=== PATIENT | male | born 1950 | race Caucasian/White ===

== ENCOUNTER → 2019-07-02 12:50 | Outpatient (CLI) | payer MEDICARE, SELFPAY ==
--- NOTE | ~2019-07-02 | XR_ITS ---
EXAMINATION: XR chest 2V 07/02/2019 13:06 INDICATION: Asbestos exposure. PROCEDURE: 2 view chest COMPARISON: 10/01/2013 FINDINGS: The lungs are clear. The cardiomediastinal silhouette is within normal limits. There are no pleural effusions. There is no pneumothorax suspected. IMPRESSION: 1: NO ACUTE CARDIOPULMONARY DISEASE. Reviewed, dictated and finalized at location B. THCARE RECRUITER
== END ==
PROVIDERS: PCP Internal Medicine; Visit Provider Internal Medicine
DX: Z77.090 Contact with and (suspected) exposure to asbestos (principal)
CPT/HCPCS: 71046

== ENCOUNTER 2021-04-27 01:10 | Day surgery (SDC) | payer MEDICARE, SELFPAY ==
[2021-04-09 09:01] VITALS: BMI 27.0
--- NOTE | 2021-04-27 09:17 | WPDANESEPPF ---
Anes - Initial Pre Proc Eval Procedure: Operation Date: 04/27/21 10:30 Proposed Procedures p Screening Colonoscopy - Milo Viveros MD Date/Time: 04/27/21 09:17 Surgeon: Milo Viveros MD Pre Op Diagnosis: hx of colon polyps Patient Data Age: 70 Gender: M Height: 1.88 m Weight: 95.4 kg Allergies Allergy/AdvReac Type Severity Reaction Status Date / Time No Known Allergies Allergy Verified 04/27/21 09:17 Home Medications Medication Instructions Recorded Confirmed Type aspirin 81 mg tablet,delayed 81 mg PO DAILY 06/05/19 04/09/21 History release hydrochlorothiazide 12.5 mg tablet 12.5 mg PO DAILY #90 tablet 04/16/21 04/27/21 Rx lisinopril 40 mg tablet 40 mg PO DAILY #90 tablet 04/16/21 04/27/21 Rx simvastatin 10 mg tablet 10 mg PO DAILY #90 tablet 04/16/21 04/27/21 Rx Patient hx anesthesia problems: none Family hx anesthesia problems: none Results Review: All pre-operative results and documents have been reviewed as part of the pre-operative evaluation. [facility] Past Medical History Medical History (Updated 04/27/21 @ 09:23 by Isaac Denson MD) Essential (primary) hypertension Hypercalcemia Prostate cancer Pure hypercholesterolemia Family History Family History Mother Cerebrovascular accident, Onset Age: 73 Father Patient's father is Other Family history of lung cancer Social History Social History Smoking status: Never smoker Second hand tobacco smoke exposure: No Alcohol intake: current Drinks per week: 8 Alcohol use details: 2 beers every other day Substance use: never Substance use type: does not use Living arrangements: with family Spiritual care concerns: No Anes - Eval Final PreProcedure Day of Procedure 04/27/21 09:17 Patient weight: normal Heart: regular rate and rhythm Lungs: clear to auscultation and normal air movement Airway: Mallampati scale class II Neurological: alert and oriented Last oral intake: >/= 8 hours ASA classification: III Emergent: no Anesthetic plan: proceed Anesthesia type and monitoring: general GIVS Results Review: All pre-operative results and documents have been reviewed as part of the pre-operative evaluation. Informed Consent: The patient's anesthetic plan and its attendant risks and benefits were discussed with the patient/family/POA. Questions were solicited and answers provided to the satisfaction of the patient/family/POA.
[2021-04-27 09:18] VITALS: BP 114/73; PULSE 107; RESP 18; TEMP 36.7; O2SAT 100
[2021-04-27] MEDS: LACTATED RINGERS 1,000 ML 150 ML IV CONT (09:37)
--- NOTE | 2021-04-27 10:01 | WPDGICN ---
Assessment and Plan Assessment and plan (1) History of colon polyps: Code(s): Z86.010 - Personal history of colonic polyps Status: Acute Assessment and Plan: Patient has a history of colon polyps removed at last colonoscopy 2015. Plan is for surveillance follow-up colonoscopy at this time. Further recommendations will be given after endoscopy. GI Consult Note Consult date/time: 04/27/21 10:01 HPI: Raúl Wu is a 70 year old male Presents for colonoscopy. Patient has a prior history of colon polyps in 2016. He reports his current weight appetite bowel movements are normal. Patient denies abdominal pain. He has had no bleeding. Family history is noncontributory. He presents today for neoplasia screening. Review of Systems Review of Systems: All systems reviewed & are unremarkable except as noted in HPI and below PMFSH Past Medical History Medical History (Updated 04/27/21 @ 10:02 by Milo Viveros MD) Essential (primary) hypertension Hypercalcemia Prostate cancer Pure hypercholesterolemia Family History Family History Mother Cerebrovascular accident, Onset Age: 73 Father Patient's father is Other Family history of lung cancer Social History Social History Smoking status: Never smoker Second hand tobacco smoke exposure: No Alcohol intake: current Drinks per week: 8 Alcohol use details: 2 beers every other day Substance use: never Substance use type: does not use Living arrangements: with family Spiritual care concerns: No Meds Home Medications and Allergies Home Medications Medication Instructions Recorded Confirmed Type aspirin 81 mg tablet,delayed 81 mg PO DAILY 06/05/19 04/09/21 History release hydrochlorothiazide 12.5 mg tablet 12.5 mg PO DAILY #90 tablet 04/16/21 04/27/21 Rx lisinopril 40 mg tablet 40 mg PO DAILY #90 tablet 04/16/21 04/27/21 Rx simvastatin 10 mg tablet 10 mg PO DAILY #90 tablet 04/16/21 04/27/21 Rx Allergies Allergy/AdvReac Type Severity Reaction Status Date / Time No Known Allergies Allergy Verified 04/27/21 09:17 Vital Signs Vital Signs - 24 hr 04/27/21 09:18 Temperature 98.1 F Pulse Rate 107 H Respiratory Rate 18 Blood Pressure 114/73 Pulse Oximetry 100 Exam Narrative: Physical exam reveals patient be alert. Vital signs stable. HEENT exam is unremarkable. Patient is anicteric. Lungs are clear to auscultation and percussion. Heart is without murmur or extra sounds. Abdomen bowel sounds are present soft nontender with no organomegaly. Digital external rectal exam is normal.
[2021-04-27 10:28] VITALS: BP 72/42; PULSE 88; RESP 19; O2SAT 99
[2021-04-27 10:34] VITALS: BP 101/68; PULSE 82; RESP 14; O2SAT 99
[2021-04-27 10:38] VITALS: BP 96/63; PULSE 79; RESP 17; O2SAT 100
[2021-04-27 10:48] VITALS: BP 116/78; PULSE 76; RESP 21; O2SAT 97
[2021-04-27 10:55] VITALS: BP 123/79
== END 2021-04-27 11:05 | disposition home or self-care (01) ==
PROVIDERS: PCP Internal Medicine; Visit Provider Internal Medicine Gastroenterology
PROC: 0DJD8ZZ Inspection of Lower Intestinal Tract, Via Natural or Artificial Opening Endoscopic (ICD-10-PCS; CPT 45378; principal; 2021-04-27 10:30)
DX: Z12.11 Encounter for screening for malignant neoplasm of colon (principal); K64.8 Other hemorrhoids; K57.30 Diverticulosis of large intestine without perforation or abscess without bleeding; Z86.010 Personal history of colon polyps; I10 Essential (primary) hypertension; E78.00 Pure hypercholesterolemia, unspecified; E83.52 Hypercalcemia; Z85.46 Personal history of malignant neoplasm of prostate; Z79.82 Long term (current) use of aspirin
CPT/HCPCS: G0105; J2704; J7120

== ENCOUNTER 2022-11-03 13:23 | Outpatient (CLI) | payer MEDICARE, SELFPAY ==
--- NOTE | ~2022-11-03 | CT_ITS ---
EXAMINATION: CT shoulder RT wo con DATE: 11/03/2022 13:56 INDICATION: Right shoulder osteoarthritis for preoperative planning. TECHNIQUE: High resolution computed tomography (CT) of the right shoulder was performed without intra venous contrast. Additional sagittal and coronal reconstructions were performed. Automated exposure c ontrol and iterative reconstruction technique were employed. The dose-length product was 546.31 mGy-c m. COMPARISON: Right shoulder radiographs dated 07/18/2022 FINDINGS: Severe osteoarthritis at the right glenohumeral joint with extensive cartilage loss resulting in esse ntially [id number] joint space narrowing with remodeling and subarticular cystic change along the s uperomedial aspect of the humeral head and with remodeling of the glenoid particularly posteriorly re sulting in approximately 10 degrees acquired retroversion. Multiple loose osteochondral bodies are se en throughout the recesses of the joint space. There is mild fatty atrophy of the infraspinatus muscl e belly. Moderate right acromioclavicular osteoarthritis. Small calcified nodules in the right upper lobe consistent with old granulomatous disease. IMPRESSION: 1. Severe right glenohumeral osteoarthritis with approximately 10 degrees acquired retroversion of th e glenoid. Reviewed, dictated and finalized at location A. IMPRESSION: 1. Severe right glenohumeral osteoarthritis with approximately 10 degrees acqui red retroversion of the glenoid.
== END 2022-11-03 13:24 | disposition home or self-care (01) ==
PROVIDERS: PCP Internal Medicine; Visit Provider Orthopaedic Surgery
DX: M19.011 Primary osteoarthritis, right shoulder (principal)
CPT/HCPCS: 73200

== ENCOUNTER 2022-11-10 10:38 | Emergency (ER) | payer MEDICARE, SELFPAY ==
--- NOTE | ~2022-11-10 | CT_ITS ---
Non-contrast Head CT History: Status post fall Technique: Axial non-contrast imaging of the brain was performed. Dose reduction technique was used on this scan by utilizing automated exposure control and iterative reconstruction technique. The dose -length product (DLP) was 681.00 mGy-cm. Findings: There is no evidence of intracranial hemorrhage, mass lesion, or acute infarct. Brain par enchyma appears normal. The ventricles and subarachnoid spaces are normal in size. The calvarium ap pears normal. The visualized paranasal sinuses and mastoid air cells are clear. Impression: No significant abnormality seen. Reviewed, dictated and finalized at location . Impression: No significant abnormality seen.
--- NOTE | ~2022-11-10 | CT_ITS ---
CT Facial Bones Clinical Indication: Status post fall Technique: Contiguous axial scans were obtained through the facial bones followed by coronal and sagi ttal reconstructions. Dose reduction technique was used on this scan by utilizing automated exposure control and iterative reconstruction technique. The dose-length product (DLP) was 303.17 mGy-cm. Findings: No fractures are identified. The visualized paranasal sinuses are clear. Intraorbital soft tissues appear normal. Impression: No fracture identified. Reviewed, dictated and finalized at location . Impression: No fracture identified.
[2022-11-10 10:48] VITALS: BP 134/84; PULSE 90; RESP 18; TEMP 36.6; O2SAT 98
--- NOTE | 2022-11-10 11:10 | ED.WOUNDLAC ---
HPI - Wound/Laceration General Chief Complaint: Wound/Laceration Stated Complaint: fall-facial lacertion Time Seen by Provider: 11/10/22 10:54 History of Present Illness HPI narrative: 71-year-old male reports for evaluation of a laceration to his right eyebrow after a mechanical fall. Patient states he was working on the house, tripped on a board on the ground and fell hitting his head on a 2 x 4. Denies LOC. Reports a laceration above his right eyebrow, bleeding controlled. Last tetanus shot unknown. Denies focal numbness or weakness, vision changes, pain with EOMs, chest pain or shortness of breath, nausea or vomiting. Related Data Home Medications Medication Instructions Recorded Confirmed aspirin 81 mg tablet,delayed 81 mg PO DAILY 06/05/19 10/26/22 release (Adult Low Dose Aspirin) vit C 250 mg-vit E 90 mg-zinc 40 1 tablet PO BID 07/18/22 10/26/22 mg-copper 1 [id number] capsule (PreserVision AREDS-2) Allergies Allergy/AdvReac Type Severity Reaction Status Date / Time No Known Allergies Allergy Verified 11/10/22 10:38 Review of Systems Review of Systems: CONSTITUTIONAL: Denies fever, chills EYES: Denies visual changes, redness, or discharge. ENT: Denies rhinorrhea, congestion, sore throat, or otalgia. CARDIOVASCULAR: Denies chest pain, palpitations, or edema. RESPIRATORY: Denies cough or dyspnea. GASTROINTESTINAL: Denies abdominal pain, nausea, vomiting, or diarrhea. GENITOURINARY: Denies dysuria or hematuria. SKIN: See HPI MUSCULOSKELETAL: Denies back pain, joint pain, or myalgia. NEUROLOGIC: Denies headache, numbness, dizziness, or weakness. PSYCHIATRIC: Denies anxiety or depression. [facility] Past Medical History Medical History Essential (primary) hypertension History of torn meniscus of right knee (~1974) Hypercalcemia Prostate cancer Pure hypercholesterolemia Shoulder separation (~1972) Left shoulder Family History Family History Mother Cerebrovascular accident, Onset Age: 73 Father Patient's father is Other Family history of lung cancer Social History Social History Smoking status: Never smoker Second hand tobacco smoke exposure: No Alcohol intake: current Drinks per week: 8 Alcohol use details: 2 beers every other day Substance use: never Substance use type: does not use Lack of Transportation: No Lack of Food: Never True Current Housing: I Have Housing Concerned About Future Housing: No Difficulty Paying Gas/Electric Bills: No Difficulty Paying for Meds: No Currently Unemployed: No Education: High School Diploma/GED Difficulty w/ Childcare or Family Care: No Living arrangements: with family Spiritual care concerns: No Exam Narrative: GENERAL: Well-appearing, in no acute distress. HEAD: Normocephalic. EYES: PERRLA, EOMI ENT: Nares clear. Mucous membranes moist. Oropharynx without tonsillar hypertrophy exudate or other lesions. NECK: Supple. CHEST: No respiratory distress. Clear to auscultation, no adventitious breath sounds. HEART: Regular rate and rhythm. No murmur heard. Normal peripheral pulses. ABDOMEN: Soft, nontender, normal active bowel sounds. EXTREMITIES: Normal range of motion. No edema. SKIN: 2 cm curvilinear laceration above the right eyebrow. Bleeding controlled. 2 cm area of erythema to the right zygomatic bone without tenderness. NEURO: No focal deficits. Alert and oriented x3. Cranial nerves II through XII intact. Strength 5/5 in BUE and BLE. Sensation intact throughout. PSYCH: Normal mood and affect. Course Course Emergency Course: Offered medications for pain, he declined. Vital Signs Vital signs: Vital Signs Temperature 97.9 F 11/10/22 10:48 Pulse Rate 90 11/10/22 10:48 Respiratory Ra
[2022-11-10] MEDS: TETANUS,DIPHTHERIA,AC PERTUSSIS ADULT (0.5 ML) BOOSTRIX IM (12:05)
== END 2022-11-10 12:19 | disposition home or self-care (01) ==
PROVIDERS: Emergency Provider Physician Assistant; PCP Internal Medicine
DX: S01.111A Laceration without foreign body of right eyelid and periocular area, initial encounter (principal); Z23 Encounter for immunization; I10 Essential (primary) hypertension; E78.00 Pure hypercholesterolemia, unspecified; Z85.46 Personal history of malignant neoplasm of prostate; Z79.82 Long term (current) use of aspirin; W18.09XA Striking against other object with subsequent fall, initial encounter
CPT/HCPCS: 12011; 70450; 70486; 90471; 90715; 99284

== ENCOUNTER 2023-05-02 08:34 | Outpatient (CLI) | payer MEDICARE, SELFPAY ==
--- NOTE | 2023-05-02 | ECG_ITS ---
Measurements Intervals [place] Rate: 70 P: 51 NC: 191 QRS: 48 QRSD: 92 T: 58 QT: 382 QTc: 414 Interpretive Statements SINUS RHYTHM NORMAL ECG NO PREVIOUS ECG AVAILABLE FOR COMPARISON Electronically Signed On 05-02-2023 9:44:39 GREETING CARD EDITOR by Ellis Dallas D.O.
== END 2023-05-02 08:35 | disposition home or self-care (01) ==
PROVIDERS: PCP Internal Medicine
DX: R03.0 Elevated blood-pressure reading, without diagnosis of hypertension (principal)
CPT/HCPCS: 93005

== ENCOUNTER 2023-07-26 09:57 | Outpatient (CLI) | payer MEDICARE, SELFPAY ==
--- NOTE | ~2023-07-26 | XR_ITS ---
Right Knee Technique: AP, lateral, and sunrise views were obtained. Clinical History: Pain Findings: No fracture or dislocation is seen. There is severe degenerative change of the medial mark rtment, medial joint space narrowing and medial joint line osteophyte formation. There is moderate sp urring of the patella and lateral joint line.. Soft tissues are unremarkable. No joint effusion is se en. Impression: Tricompartmental degenerative change, as detailed above, worst in the medial compartment. Reviewed, dictated and finalized at location M. ESSIONAL HOUSING CONSULTANT Impression: Tricompartmental degenerative change, as detailed above, worst in the medial co mpartment.
== END 2023-07-26 09:58 | disposition home or self-care (01) ==
PROVIDERS: PCP Internal Medicine; Visit Provider Orthopaedic Surgery
DX: M17.11 Unilateral primary osteoarthritis, right knee (principal)
CPT/HCPCS: 73562

== ENCOUNTER 2023-08-03 12:20 | Outpatient (CLI) | payer MEDICARE, SELFPAY ==
--- NOTE | ~2023-08-03 | CT_ITS ---
. EXAMINATION: CT LE RT wo con DATE: 08/03/2023 13:33 INDICATION: Right knee primary osteoarthritis. Preoperative planning. TECHNIQUE: Computed tomography (CT) of the right lower limb was performed without intravenous contras t. Automated exposure control and iterative reconstruction technique were employed. The dose-length p roduct was 1811.60 mGy-cm. COMPARISON: Right knee radiographs 07/26/2023 FINDINGS: There is moderate right hip osteoarthritis. There is varus angulation at the knee. There is severe osteoarthritis of the medial and patellofemoral compartments and moderate osteoarthritis of l ateral compartment. There is a small knee joint effusion. Partially visualized is an arthroplasty of first metatarsophalangeal joint. There is severe ankle joint osteoarthritis. IMPRESSION: 1. Severe right knee osteoarthritis. 2. Small right knee joint effusion. 3. Moderate right hip osteoarthritis. 4. Severe ankle osteoarthritis. Reviewed, dictated and finalized at location A. ER MECHANIC
[2023-08-03 13:14] LABS: Albumin Level 4.5 g/dL (3.5-5.1); Estimated Glomerular Filt Rate > 60; Glucose 95 mg/dL (65-110)
[2023-08-03 13:21] LABS: Hematocrit 43.4 % (42.0-52.0); Hemoglobin 14.2 g/dL (14.0-18.0)
== END 2023-08-03 12:21 | disposition home or self-care (01) ==
PROVIDERS: PCP Internal Medicine; Visit Provider Orthopaedic Surgery
DX: Z01.818 Encounter for other preprocedural examination (principal); M17.11 Unilateral primary osteoarthritis, right knee; M16.11 Unilateral primary osteoarthritis, right hip; M19.071 Primary osteoarthritis, right ankle and foot; M25.461 Effusion, right knee; E78.5 Hyperlipidemia, unspecified; I10 Essential (primary) hypertension
CPT/HCPCS: 36415; 73700; 82040; 82565; 82947; 85014; 85018

== ENCOUNTER 2023-09-25 09:15 | Emergency (ER) | payer MEDICARE, SELFPAY ==
[2023-09-25 09:22] VITALS: BP 146/66; PULSE 78; RESP 16; TEMP 36.5; O2SAT 100
--- NOTE | 2023-09-25 09:40 | ED.EAR ---
HPI - Ear Problem General Chief complaint: Ear Stated complaint: Ear Pain Time Seen by Provider: 09/25/23 09:35 Source: patient, RN notes reviewed and old records reviewed Mode of arrival: ambulatory Limitations: no limitations History of Present Illness HPI Narrative: 72-year-old male to [facility] for complaint of bilateral impacted cerumen, worse on left. Patient endorses that he used ear plugs yesterday while mowing and had discomfort in left ear. Patient reports history of impacted cerumen and history of perforated TM on right. Patient states he was referred to ENT but did not want to wait 2 months for initial appointment. Patient denies pain, nausea, dizziness, headache. No signs of distress in triage. Related Data Home Medications Medication Instructions Recorded Confirmed aspirin 81 mg tablet,delayed 81 mg PO DAILY 06/05/19 09/25/23 release (Adult Low Dose Aspirin) Allergies Allergy/AdvReac Type Severity Reaction Status Date / Time No Known Allergies Allergy Verified 09/25/23 09:23 Review of Systems Review of Systems: All systems reviewed & are unremarkable except as noted in HPI and below Constitutional: Constitutional: Reports no additional constitutional complaints Eyes: Eyes: Reports no additional eye complaints ENT: Reports as per HPI, Denies dizziness, Denies ear discharge and Reports otalgia ( bilateral; worse on left per patient) Cardiovascular: Cardiovascular: Reports no additional cardiovascular complaints, Denies chest pain and Denies dyspnea Respiratory: Respiratory: Reports no additional respiratory complaints, Denies cough and Denies dyspnea Musculoskeletal: Musculoskeletal: Reports no additional musculoskeletal complaints Neurologic: Reports system reviewed and no additional complaints, except as documented Psychiatric: Psychiatric: Reports no additional psychiatric complaints [facility] Past Medical History Medical History Essential (primary) hypertension History of torn meniscus of right knee (~1974) Hypercalcemia Prostate cancer Pure hypercholesterolemia Shoulder separation (~1972) Left shoulder Family History Family History Mother Cerebrovascular accident, Onset Age: 73 Father Patient's father is Other Family history of lung cancer Social History Social History Smoking status: Never smoker Second hand tobacco smoke exposure: No Alcohol intake: current Drinks per week: 8 Alcohol use details: 2 beers every other day Substance use: never Substance use type: does not use Do You Feel Safe in your Home?: Yes Lack of Transportation: No Lack of Food: Never True Current Housing: I Have Housing Concerned About Future Housing: No Difficulty Paying Gas/Electric Bills: No Difficulty Paying for Meds: No Currently Unemployed: No Education: High School Diploma/GED Difficulty w/ Childcare or Family Care: No Living arrangements: with family Spiritual care concerns: No Comments At the time of my signature, I reviewed and agree with the nursing past medical, surgical, social, and family history. There is no relevant family history pertinent to the patient complaint. Exam Const: General: cooperative, healthy appearing, comfortable, no acute distress, alert and well nourished Nutritional Appearance: well nourished Orientation/consciousness: patient oriented x3 Limitations: no limitations HENMT: Head: normal to inspection Ears: TM abnormal erythematous on the left, with fluid behind the TM on the left and perforated without discharge on the right ( chronic) Face/Nose/Sinus: Normal external nose present, Normal nares present, normal facial exam, No erythema and No edema Face and sinus: normal facial exam, no erythema and no edema Mouth:
== END 2023-09-25 10:11 | disposition home or self-care (01) ==
PROVIDERS: Emergency Provider Nurse Practitioner Family; PCP Internal Medicine
DX: H61.23 Impacted cerumen, bilateral (principal); H66.92 Otitis media, unspecified, left ear; H72.91 Unspecified perforation of tympanic membrane, right ear; I10 Essential (primary) hypertension; E78.00 Pure hypercholesterolemia, unspecified; Z85.46 Personal history of malignant neoplasm of prostate; Z79.82 Long term (current) use of aspirin
CPT/HCPCS: 69210; 99213; A9270; G0463

== ENCOUNTER 2023-10-06 11:50 | Outpatient (CLI) | payer MEDICARE, SELFPAY ==
[2023-10-06 12:45] LABS: Basophils Absolute Auto 0.1 K/mm3 (0.0-0.1); Basophils Percent Auto 0.5 % (0.2-1.2); Eosinophils Absolute Auto 0.3 K/mm3 (0-0.3); Eosinophils Percent Auto 2.7 % (0-4.4); Hematocrit 44.6 % (42.0-52.0); Hemoglobin 14.9 g/dL (14.0-18.0); Immature Granulocyte Absolute 0.02 K/mm3 (0.00-0.031); Immature Granulocyte Percent A 0.2 % (0-0.5); Lymphocytes Percent Auto 54.3 % (18.3-44.2); Mean Corpuscular HGB Conc 33.4 g/dl (32-36); Mean Corpuscular Hemoglobin 30.8 pg (26-34); Mean Corpuscular Volume 92.3 fl (80-100); Mean Platelet Volume 8.4 fl (7.4-10.4); Monocytes Absolute Auto 0.8 K/mm3 (0.1-0.6); Monocytes Percent Auto 6.9 % (2.6-8.5); Neutrophils Percent Auto 35.4 % (45.5-73.1); Platelet Count Result 254 k/mm3 (150-375); Red Blood Count 4.83 M/mm3 (4.6-6.20); Red Cell Distribution Width 12.9 % (11.5-14.5); White Blood Count 11.2 K/mm3 (4.5-10.0)
[2023-10-06 12:51] LABS: Albumin Level 4.9 g/dL (3.5-5.1)
[2023-10-06 12:55] LABS: Anion Gap 6 mmol/L (4-12); Blood Urea Nitrogen 19 mg/dL (9-20); Calcium 10.3 mg/dL (8.4-10.2); Carbon Dioxide 30 mmol/L (22-30); Chloride 101 mmol/L (98-107); Estimated Glomerular Filt Rate > 60; Glucose 103 mg/dL (65-110); Potassium 4.2 mmol/L (3.4-5.0); Sodium 137 mmol/L (137-145)
[2023-10-06 12:56] LABS: Urine Cotinine NEGATIVE
[2023-10-06 13:54] LABS: MRSA (PCR) NOT DETECTED (NOT DETECTE)
== END 2023-10-06 11:51 | disposition home or self-care (01) ==
LOC: ANHSURGERY 11:57
PROVIDERS: Anesthesiology; PCP Internal Medicine; Visit Provider Orthopaedic Surgery
DX: Z01.818 Encounter for other preprocedural examination (principal); M17.11 Unilateral primary osteoarthritis, right knee; Z79.899 Other long term (current) drug therapy
CPT/HCPCS: 36415; 80048; 80307; 82040; 85025; 87641

== ENCOUNTER 2023-10-31 02:10 | Day surgery (SDC) | payer MEDICARE, SELFPAY ==
--- NOTE | 2023-10-06 11:49 | PC.NURSE ---
Addendum entered by Carmen Haddad RN 10/06/23 12:35: PRE-OP INSTRUCTIONS GIVEN TO/REVIEW WITH PT AND HIS SISTER (MARCELLO) NOT HIS SPOUSE Original Note: PRE-OP INSTRUCTIONS, PLEASE READ CAREFULLY Report to the Outpatient Waiting Room, entrance under the green pavilion located off [facility], at time _0630_ on date _10/31/23_. Planned Procedure Time: _0830_. PACK A SMALL OVERNIGHT BAG AND LEAVE IN THE CAR ALONG WITH YOUR WALKER Time changes happen often and if your time is changed the preop area will call you the afternoon before. - You and your visitor will be asked to self-screen and do not enter if you have any COVID symptoms. - A mask is optional within the hospital at this time. -VISITING HOURS 8AM-8PM Patients may have clear liquids (water, carbonated beverages, clear teas, apple juice) until 3 hours prior to surgery (0530 AM) with a maximum of 20 ounces. - No food from midnight until time of surgery Take the following medications with a SIP of water the morning of surgery: _TYLENOL IF NEEDED_ DO NOT STOP ANY OF YOUR OTHER PRESCRIPTION MEDICATIONS PRIOR TO SURGERY ?EXCEPT THE FOLLOWING Medications to discontinue per DR. CASTORENA - _ASPIRIN 7 DAYS PRIOR TO SURGERY, Date to take last dose 10/23/23_ Medications to discontinue per ANESTHESIA - _AREDS-2, 3 DAYS PRIOR TO SURGERY, Date to take last dose 10/27/23_ Please no make-up, nail lao, hairspray, perfume, deodorant, or body powder the day of surgery. No jewelry (including any body piercings) or valuables the day of surgery, leave them at home. Please take a shower or bath the night before, or the morning of, surgery with an antibacterial soap. Wear comfortable, loose fitting clothing. - Jewelry must be removed prior to entering the operating room. Rings and piercings that are not removed may be cut off. - The hospital will not accept responsibility for valuables. - Please leave all valuables, including medications, at home the day of surgery. If you are going home after surgery, a licensed batch mixing truck driver must drive you home. - NO public transportation without another adult if you receive anesthesia. - We recommend that an adult stay with you for 24 hours following discharge. - We also recommend that you do not drive, make important decision, drink alcoholic beverages, or take any drugs that were not prescribed by your health care provider for at least 24 hours after your discharge time. Follow any additional instructions given to you from your surgeon. If you or anyone in your household have experienced Covid symptoms in the past week, please notify your surgeon or the nurse liaison at the phone number below for possible testing. Instructions given to _PATIENT & SPOUSE_and asked if any additional questions and then verbalized understanding. Patient advised to call surgeon office or pre surgery nurse liaison [phone] if any additional questions.
[2023-10-06 12:17] VITALS: BP 166/72; PULSE 70; RESP 20; TEMP 36.9; O2SAT 100; BMI 27.1
[2023-10-31] VITALS (9 sets, daily range): BP systolic 132–159; BP diastolic 69–85; PULSE 81–89; RESP 11–20; TEMP 36.1–36.5; O2SAT 100
--- NOTE | ~2023-10-31 | XR_ITS ---
EXAMINATION: [id number] DATE: 10/31/2023 10:59 INDICATION: Postoperative evaluation following right total knee arthroplasty. TECHNIQUE: Anteroposterior and lateral views of the right knee were obtained. COMPARISON: None. FINDINGS: Right total knee arthroplasty without patellar resurfacing appears well seated and in near anatomic a lignment. No fractures identified. Expected postoperative subcutaneous and intra-articular gas. IMPRESSION: 1. Right total knee arthroplasty without patellar resurfacing, negative for postoperative purposes. Reviewed, dictated and finalized at location B. IMPRESSION: 1. Right total knee arthroplasty without patellar resurfacing, negative for pos toperative purposes.
[2023-10-31] MEDS: LACTATED RINGERS 1,000 ML 30 ML IV CONT ×2 (06:40→10:41)
[2023-10-31] MEDS: ACETAMINOPHEN 500 MG TABLET 1000 MG PO (07:00)
[2023-10-31] MEDS: TRANEXAMIC ACID 1,000MG/ISO100 1,000 MG/100 ML BAG 200 MG IVPB (07:21)
--- NOTE | 2023-10-31 07:30 | WPDHPUPDATE1 ---
History and Physical Update Update Date/Time: 10/31/23 07:30 History and Physical has been reviewed, including an updated exam of the patient. There are NO changes in the patient's condition. Risks, benefits, and alternatives have been discussed and questions answered. Patient agrees to proceed with procedure.
--- NOTE | 2023-10-31 07:47 | WPDANESEPPF ---
Anes - Initial Pre Proc Eval Procedure: Operation Date: 10/31/23 08:30 Proposed Procedures p Right Custom Total Knee Replacement - Jorge El MD Date/Time: 10/31/23 07:47 Surgeon: Jorge El MD Pre Op Diagnosis: Primary OA right knee Patient Data Age: 72 Gender: M Height: 1.83 m Weight: 88.7 kg Last Vital Signs Temp 97.0 F L 10/31/23 07:00 Pulse 81 10/31/23 07:00 Resp 16 10/31/23 07:00 BP 159/85 H 10/31/23 07:00 Pulse Ox 100 10/31/23 07:00 O2 Del Method Room Air 10/31/23 07:00 Allergies Allergy/AdvReac Type Severity Reaction Status Date / Time No Known Allergies Allergy Verified 10/31/23 07:22 Home Medications Medication Instructions Recorded Confirmed Type aspirin 81 mg tablet,delayed 81 mg PO DAILY 06/05/19 10/31/23 History release (Adult Low Dose Aspirin) lisinopril 40 mg tablet 40 mg PO DAILY #90 tabs 02/17/23 10/31/23 Rx hydrochlorothiazide 12.5 mg tablet 12.5 mg PO DAILY #90 tabs 08/01/23 10/31/23 Rx simvastatin 10 mg tablet 10 mg PO DAILY #90 tabs 08/01/23 10/31/23 Rx acetaminophen 650 mg 1,300 mg PO Q8H PAIN 10/06/23 10/31/23 History tablet,extended release psyllium husk 3.4 gram/5.4 gram 1 tbsp PO DAILY 10/06/23 10/31/23 History oral powder (Metamucil) vit C 250 mg-vit E 90 mg-zinc 40 1 tablet PO BID 10/06/23 10/31/23 History mg-copper 1 rx-ifzlom-ivmisu capsule (PreserVision AREDS-2) aspirin 81 mg tablet,delayed 81 mg PO BID 14 days #28 tabs 10/31/23 Rx release cephalexin 500 mg capsule 500 mg PO TID 2 days #6 caps 10/31/23 Rx meloxicam 15 mg tablet 15 mg PO DAILY #30 tabs 10/31/23 Rx oxycodone-acetaminophen 5 mg-325 1 - 2 tablet PO Q4-6H PRN pain #30 10/31/23 Rx mg tablet tabs prednisone 5 mg tablet 5 mg PO DAILY 3 weeks #21 tabs 10/31/23 Rx Patient hx anesthesia problems: none Family hx anesthesia problems: none Results Review: All pre-operative results and documents have been reviewed as part of the pre-operative evaluation. [facility] Past Medical History Medical History Essential (primary) hypertension History of torn meniscus of right knee (~1974) Hypercalcemia Prostate cancer Pure hypercholesterolemia Shoulder separation (~1972) Left shoulder Family History Family History Mother Cerebrovascular accident, Onset Age: 73 Father Patient's father is Other Family history of lung cancer Social History Social History Smoking status: Never smoker Second hand tobacco smoke exposure: No Additional smoking assessment comments: PT DENIES ALL FORMS OF TOBACCO USE Alcohol intake: current Drinks per week: 8 Alcohol use details: 2 beers every other day Substance use: never Substance use type: does not use Do You Feel Safe in your Home?: Yes Lack of Transportation: No Lack of Food: Never True Current Housing: I Have Housing Concerned About Future Housing: No Difficulty Paying Gas/Electric Bills: No Difficulty Paying for Meds: No Currently Unemployed: No Education: High School Diploma/GED Difficulty w/ Childcare or Family Care: No Living arrangements: with family Spiritual care concerns: No Anes - Eval Final PreProcedure Day of Procedure 10/31/23 07:47 Patient weight: normal Heart: regular rate and rhythm Lungs: clear to auscultation Airway: Mallampati scale and special considerations (Missing upper L post teeth, R upper incisor w chip/ridge noted. ) Neurological: alert and oriented Last oral intake: >/= 8 hours ASA classification: II Emergent: no Anesthetic plan: proceed Anesthesia type and monitoring: general LMA, regional (PNB. ) and standard monitoring Results Review: All pre-operative results and documents have been reviewed as part of the pre-operative eval
[2023-10-31] MEDS: ceFAZolin 2 GM/D5W 50 ML 2 GM/50 ML BAG IVPB (08:29)
--- NOTE | 2023-10-31 08:49 | WPDANESPNB ---
Anes - Peripheral Nerve Block Date/Time: 10/31/23 08:49 I have discussed with the patient/family/POA the placement of a peripheral nerve block for post-operative pain management, including associated risks, benefits, complications, and side effects. Alternative methods of post-operative analgesia were detailed. Questions were solicited and answers provided to the satisfaction of the patient/family/POA. Time-Out: A pre-procedural Time-Out was completed immediately before starting the procedure and confirmed: Patient Identification, Site, Procedure, Patient Position and the Availability of Requisite Equipment. Clinical Indications: Acute post-operative pain management requested by the operative surgeon. Nerve Block Insertion Note Anes-nerve block: adductor canal right Patient position: supine Skin prep: chlorhexidine Needle: 22 gauge, stimulating, insulated echogenic needle. Needle length: 50 mm Technique: ultrasound Injectate: other (Bupiv 0.5%, 15 mls. ) Observations: tolerated well Complications: none Procedure start time:: 815 Procedure end time:: 823
[2023-10-31] MEDS: SODIUM CHLORIDE 0.9% IV 37.7 ML, MORPHINE SULFATE INJ (*CRX) 2 MG, ROPivacaine HCL 1% 2... INFILTRATE (09:03)
--- NOTE | 2023-10-31 11:16 | W.PM.PROC2 ---
Procedure Note - Detailed Date of Procedure 10/31/23 Pre-op Diagnosis Primary OA right knee Post-op Diagnosis Same Procedure Performed Total knee arthroplasty, right. Surgeon Jorge El MD Retail Assistant Store Manager Patsy Black PA-C Anesthesia General and Regional (Subsartorial block.) Findings Cemented custom TKA. No releases. Description of Procedure Preoperative antibiotics were given. The limb was prepped and draped in the usual sterile fashion with a well-padded tourniquet high on the thigh. The limb was exsanguinated and the tourniquet inflated to 300 mmHg. A longitudinal incision was created just medial to the patella. A trivector approach to the knee was performed. Arthrotomy was taken down through the joint capsule. No significant releases were initially taken. The femur was exposed and the F1 jig was applied. The coring tool was used to remove the cartilage for the F2 jig to sit flush with the bone. The jig was pinned and the distal cut carefully taken. Caliper measurements confirmed appropriate bony resections according to the preoperative templated plan. The F4 cutting jig for the femur was applied, at the standard rotation. The AP and anterior chamfer cuts were taken. The F5 jig was applied and the posterior chamfer cuts were taken. The tibia was prepared using the T1 jig, after removing cartilage for the jig contact points. Proper alignment was checked with the alignment raymond. The tibia was cut using the T1u guide. Gap balancing was performed. Gap measurements were taken and the knee was trialed. Excellent alignment and soft tissue balancing was confirmed. The posterior cruciate ligament was recessed along the proximal tibia. The patella was denervated. Meniscal remnants were removed. The trial components were assembled. Excellent range of motion and proper soft tissue balancing were confirmed throughout the full range of motion. Patellar tracking was excellent. The knee was copiously irrigated periodically throughout the procedure. The real implants were cemented into position. Excess cement was carefully removed. The wound was closed in layers with interrupted #1 Vicryl suture, 2-0 strata fix suture, 0 strata fix suture, 2-0 strata fix suture. Steri-Strips placed on the skin with the knee flexed. Sterile bulky dressing applied. The patient was brought to the recovery room in stable condition. There were no complications. Physician bus assistant, Patsy Black PA-C, required for surgery; including patient positioning, draping, tissue retraction, maintaining instrument position, cement removal, wound closure, and dressing placement. Implants Conformis Custom total knee arthroplasty. Cemented. Cruciate retaining. 6C insert. Estimated Blood Loss 50 Drains No Complications No immediate complications Condition Stable Disposition Same day [facility] Billing Surgery - Charge Forward: Surgery Billing
== END 2023-10-31 13:03 | disposition home or self-care (01) ==
PROVIDERS: PCP Internal Medicine; Visit Provider Orthopaedic Surgery
PROC: (CPT 27447; principal; 2023-10-31 08:30)
DX: M17.11 Unilateral primary osteoarthritis, right knee (principal); G89.18 Other acute postprocedural pain; I10 Essential (primary) hypertension; E78.00 Pure hypercholesterolemia, unspecified; Z85.46 Personal history of malignant neoplasm of prostate; Z79.82 Long term (current) use of aspirin
CPT/HCPCS: 27447; 64447; 36415; 73560; 86850; 86900; 86901; 97110; 97161; 97165; 97530; A9270; C1713; C1776; J0171; J0690; J1100; J1885; J2250; J2270; J2405; J2704; J2795; J3010; J7120

== ENCOUNTER 2024-01-31 13:02 | Outpatient (CLI) | payer MEDICARE, SELFPAY ==
--- NOTE | ~2024-01-31 | XR_ITS ---
XR shoulder RT min 2V Ordering provider: Jorge El MD History: . RT SHOULDER PAIN, HX ARTHRITIS . Comparison: None. FINDINGS: BONES: No acute fracture or dislocation. Calcific shadows are projected over the scapula and AP view. JOINT SPACES: The acromioclavicular joint is normal. The glenohumeral joint shows severe osteoarthrit ic changes. Osteophytes seen inferiorly in the humeral head. SOFT TISSUES: Normal. IMPRESSION: No acute osseous abnormality right shoulder. Severe osteoarthritic changes of the glenohumeral joint. Reviewed, dictated and finalized at location A.
== END 2024-01-31 13:03 | disposition home or self-care (01) ==
PROVIDERS: PCP Internal Medicine; Visit Provider Orthopaedic Surgery
DX: M19.011 Primary osteoarthritis, right shoulder (principal)
CPT/HCPCS: 73030

== ENCOUNTER 2024-03-07 08:28 | Emergency (ER) | payer MEDICARE, SELFPAY ==
[2024-03-07 08:50] VITALS: BP 149/89; PULSE 114; RESP 16; TEMP 38.1; O2SAT 98
--- NOTE | 2024-03-07 09:13 | ED.GENADULT ---
HPI - General Adult General Chief complaint: Ear Stated complaint: Sore Throat/Ear Pain History of Present Illness HPI narrative: 73-year-old male presented for complaint of throat pain worsening for 3 days. Also reports right ear pain. States the throat pain was so severe he had difficulty sleeping last night. Denies difficulty maintaining secretions or speaking. Denies any associated shortness of breath, wheezing, nausea, vomiting, diarrhea, fevers or chills. Not taking anything for symptoms. Related Data Home Medications Medication Instructions Recorded Confirmed vit C 250 mg-vit E 90 mg-zinc 40 1 tablet PO BID 10/06/23 03/07/24 mg-copper 1 at-qpcmik-[id number] capsule (PreserVision AREDS-2) psyllium husk 0.4 gram capsule 0.4 g PO DAILY 01/24/24 03/07/24 (Fiber (psyllium husk)) Allergies Allergy/AdvReac Type Severity Reaction Status Date / Time No Known Allergies Allergy Verified 03/07/24 08:44 Review of Systems Review of Systems: CONSTITUTIONAL: Denies body aches, fever, chills, or sweats. EYES: Denies visual changes, redness, or discharge. ENT: Denies rhinorrhea, congestion, reports sore throat, right otalgia. CARDIOVASCULAR: Denies chest pain, palpitations, or edema. RESPIRATORY: Denies dyspnea. GASTROINTESTINAL: Denies abdominal pain, nausea, vomiting, or diarrhea. SKIN: Denies rash, itching, or wounds. MUSCULOSKELETAL: Denies back pain, joint pain, or myalgia. NEUROLOGIC: Denies headache PMFSH Past Medical History Medical History Essential (primary) hypertension History of torn meniscus of right knee (~1974) Hypercalcemia Prostate cancer Pure hypercholesterolemia Shoulder separation (~1972) Left shoulder Surgical History Surgical History Status post total right knee replacement Family History Family History Mother Cerebrovascular accident, Onset Age: 73 Father Patient's father is Sibling Breast cancer Other Diabetes mellitus Other Family history of lung cancer Social History Social History Smoking status: Never smoker Second hand tobacco smoke exposure: No Additional smoking assessment comments: PT DENIES ALL FORMS OF TOBACCO USE Alcohol intake: current Drinks per week: 8 Alcohol use details: 2 beers every other day Substance use: never Substance use type: does not use Do You Feel Safe in your Home?: Yes Lack of Transportation: No Lack of Food: Never True Current Housing: I Have Housing Concerned About Future Housing: No Difficulty Paying Gas/Electric Bills: No Difficulty Paying for Meds: No Currently Unemployed: No Education: High School Diploma/GED Difficulty w/ Childcare or Family Care: No Living arrangements: with family Spiritual care concerns: No Exam Narrative: GENERAL: Mildly Ill-appearing, no acute distress. EYES: conjunctivae clear ENT: Mucous membranes moist. Left TM pearly julian with normal light reflex; right TM erythematous, cloudy, chronic hole in TM per pt, no active drainage; canal not erythematous, no tragal tenderness. Oropharynx not erythematous without lesions. Tonsils not enlarged and without exudate. No drooling, no hoarseness, no trismus, uvula midline. No tripod positioning, hot potato voice, or soft palate swelling. NECK: Supple. No lymphadenopathy CHEST: Clear to auscultation, breath sounds equal. No respiratory distress, speaks in full sentences. HEART: Regular rate and rhythm. No murmur heard. SKIN: Warm, dry, no rash. NEURO: Alert and oriented x3. Course Course Emergency Course: Patient is aware of diagnosis, understands and agrees to treatment plan. Anticipatory guidance given. Patient agrees to follow-up as directed and is aware of
[2024-03-07 09:52] LABS: EDSTREPNEGPOS1 Negative (Negative)
== END 2024-03-07 09:31 | disposition home or self-care (01) ==
PROVIDERS: Emergency Provider Nurse Practitioner Family; PCP Internal Medicine
DX: H66.001 Acute suppurative otitis media without spontaneous rupture of ear drum, right ear (principal); I10 Essential (primary) hypertension; E78.00 Pure hypercholesterolemia, unspecified; Z85.46 Personal history of malignant neoplasm of prostate; Z96.651 Presence of right artificial knee joint
CPT/HCPCS: 87081; 87880; 99213; G0463

== ENCOUNTER 2024-03-20 11:32 | Outpatient (CLI) | payer MEDICARE, SELFPAY ==
[2024-03-20 12:58] LABS: White Blood Count 12.7 K/mm3 (4.5-10.0)
[2024-03-20 14:07] LABS: MRSA (PCR) NOT DETECTED (NOT DETECTE)
== END 2024-03-20 11:33 | disposition home or self-care (01) ==
LOC: ANHSURGERY 11:36
PROVIDERS: PCP Internal Medicine; Visit Provider Orthopaedic Surgery
DX: Z01.818 Encounter for other preprocedural examination (principal); M19.011 Primary osteoarthritis, right shoulder
CPT/HCPCS: 36415; 85048; 87641

== ENCOUNTER 2024-04-18 01:06 | Day surgery (SDC) | payer MEDICARE, SELFPAY ==
[2024-03-20 11:49] VITALS: BMI 25.7
--- NOTE | 2024-03-20 12:13 | PC.NURSE ---
Report to the Outpatient Waiting Room, entrance under the green pavilion located off [facility], at time _6 AM on date 04/18/24 . Planned Procedure Time: __7:30 AM .? Time changes happen often and if your time is changed the preop area will call you the afternoon before. - You and your visitor will be asked to self-screen and do not enter if you have any COVID symptoms. Please call surgeon if you need to reschedule. - A mask is optional within the hospital at this time. Patients may have clear liquids (water, carbonated beverages, clear teas, apple juice) until 3 hours prior to surgery( 4:30 AM) with a maximum of 20 ounces. - No food from midnight until time of surgery and no smoking - Infants may have breast milk until 4 hours before surgery, infant formula 6 hours prior to surgery. - Children will be allowed to drink immediately following surgery.? If applicable, please bring a bottle or sippy cup to assist with drinking. Juice, water, soda, and popsicles are readily available.? For infants on formula, please bring formula the day of surgery.? Pacifiers are allowed. Take only the following medications with a SIP of water on the morning of surgery: _NONE DO NOT STOP ANY OF YOUR OTHER PRESCRIPTION MEDICATIONS PRIOR TO SURGERY EXCEPT THE FOLLOWING Medications to discontinue per physician ___HOLD ASPIRIN 7 DAYS PRE OP PER DR CASTORENA.LAST DOSE04/10/24. HOLD ALL VITAMINS AND SUPPLEMENTS 3 DAYS PRE OP.LAST DOSE 04/14/24 Please no make-up, nail citizen of [place], hairspray, perfume, deodorant, or body powder the day of surgery.? No jewelry (including any body piercings) or valuables the day of surgery, leave them at home.? Please take a shower or bath the night before, or the morning of, surgery with an antibacterial soap.? Wear comfortable, loose fitting clothing.? Children are encouraged to wear pajamas. - Jewelry must be removed prior to entering the operating room.? Rings and piercings that are not removed may be cut off. - The hospital will not accept responsibility for valuables.? - Please leave all valuables, including medications, at home the day of surgery. If you are going home after surgery, a licensed grain combine driver must drive you home.? - NO public transportation without another adult if you receive anesthesia. - We recommend that an adult stay with you for 24 hours following discharge. - We also recommend that you do not drive, make important decision, drink alcoholic beverages, or take any drugs that were not prescribed by your health care provider for at least 24 hours after your discharge time Follow any additional instructions given to you from your surgeon. VERBAL AND WRITTEN instructions given to PATIENT and asked if any additional questions and then verbalized understanding. Patient advised to call surgeon office or pre surgery nurse liaison [phone] if any additional questions.
[2024-03-20 12:32] VITALS: BP 145/88; PULSE 79; RESP 18; TEMP 37.2; O2SAT 100
[2024-04-18] VITALS (10 sets, daily range): BP systolic 96–141; BP diastolic 58–78; PULSE 75–84; RESP 12–18; TEMP 36.2–36.4; O2SAT 98–100
--- NOTE | ~2024-04-18 | XR_ITS ---
EXAMINATION: XR shoulder RT min 2V DATE: 04/18/2024 10:40 INDICATION: Right shoulder arthroplasty. Postop. TECHNIQUE: 2 views of right shoulder were obtained. COMPARISON: Right shoulder radiographs 01/31/2024 FINDINGS: There is a reverse dobi-blh-gspeel total right shoulder arthroplasty in near-anatomic align ment. No fracture. There is severe osteoarthritis of acromioclavicular joint. There is gas in the sof t tissues, consistent with recent surgery. IMPRESSION: 1. Reverse ojue-kgz-puyzii total right shoulder arthroplasty in near-anatomic alignment. 2. Severe osteoarthritis of acromioclavicular joint. Reviewed, dictated and finalized at location B. IMPRESSION: 1. Reverse lpdx-vps-ymhuma total right shoulder arthroplasty in near-anatomic a lignment. 2. Severe osteoarthritis of acromioclavicular joint.
[2024-04-18] MEDS: ACETAMINOPHEN 500 MG TABLET 1000 MG PO (07:00)
[2024-04-18] MEDS: TRANEXAMIC ACID 1,000MG/ISO100 1,000 MG/100 ML BAG 200 MG IVPB (07:00)
[2024-04-18] MEDS: LACTATED RINGERS 1,000 ML 30 ML IV CONT ×2 (07:00→10:14)
--- NOTE | 2024-04-18 07:07 | P.PNAN_ITS ---
Anes - Initial Pre Proc Eval Procedure: Operation Date: 04/18/24 07:30 Proposed Procedures p Right Reverse Total Shoulder Arthroplasty - Jorge El MD Date/Time: 04/18/24 07:07 Surgeon: Jorge El MD Pre Op Diagnosis: primary oa right shoulder Patient Data Age: 73 Gender: M Height: 1.85 m Weight: 88.5 kg Last Vital Signs Temp 98.9 F 03/20/24 12:32 Pulse 79 03/20/24 12:32 Resp 18 03/20/24 12:32 BP 145/88 H 03/20/24 12:32 Pulse Ox 100 03/20/24 12:32 O2 Del Method Room Air 03/20/24 12:32 Allergies Allergy/AdvReac Type Severity Reaction Status Date / Time No Known Allergies Allergy Verified 03/20/24 11:50 Home Medications Medication Instructions Recorded Confirmed Type hydrochlorothiazide 12.5 mg tablet 12.5 mg PO DAILY #90 tabs 08/01/23 03/20/24 Rx simvastatin 10 mg tablet 10 mg PO DAILY #90 tabs 08/01/23 03/20/24 Rx vit C 250 mg-vit E 90 mg-zinc 40 1 tablet PO BID 10/06/23 03/20/24 History mg-copper 1 ck-bsnkhh-qfutlq capsule (PreserVision AREDS-2) psyllium husk 0.4 gram capsule 0.4 g PO DAILY 01/24/24 03/20/24 History (Fiber (psyllium husk)) lisinopril 40 mg tablet 40 mg PO DAILY #90 tabs 01/26/24 03/20/24 Rx amlodipine 5 mg tablet 5 mg PO HS 03/20/24 03/20/24 History aspirin 81 mg tablet,delayed 81 mg PO DAILY 03/20/24 03/20/24 History release (Adult Low Dose Aspirin) Laboratory Tests 04/18/24 06:27 Blood Type Pending Antibody Screen Pending Patient hx anesthesia problems: none Family hx anesthesia problems: none Results Review: All pre-operative results and documents have been reviewed as part of the pre- operative evaluation. [facility] Past Medical History Medical History Essential (primary) hypertension History of torn meniscus of right knee (~1974) Hypercalcemia Prostate cancer Pure hypercholesterolemia Shoulder separation (~1972) Left shoulder Surgical History Surgical History Status post total right knee replacement Family History Family History Mother Cerebrovascular accident, Onset Age: 73 Father Patient's father is Sibling Breast cancer Other Diabetes mellitus Other Family history of lung cancer Social History Social History Smoking status: Never smoker Second hand tobacco smoke exposure: No Additional smoking assessment comments: PT DENIES ALL FORMS OF TOBACCO USE Alcohol intake: current Drinks per week: 8 Alcohol use details: 2 beers every other day Substance use: never Substance use type: does not use Do You Feel Safe in your Home?: Yes Lack of Transportation: No Lack of Food: Never True Current Housing: I Have Housing Concerned About Future Housing: No Difficulty Paying Gas/Electric Bills: No Difficulty Paying for Meds: No Currently Unemployed: No Education: High School Diploma/GED Difficulty w/ Childcare or Family Care: No Living arrangements: with family Spiritual care concerns: No Anes - Eval Final PreProcedure Day of Procedure 04/18/24 07:07 Patient weight: normal Heart: regular rate and rhythm Lungs: clear to auscultation Airway: Mallampati scale class 1 and special considerations (R upper incisor w chip noted. ) Neurological: alert and oriented Last oral intake: >/= 8 hours ASA classification: II Emergent: no Anesthetic plan: proceed Anesthesia type and monitoring: general ETT and standard monitoring Results Review: All pre-operative results and documents have been reviewed as part of the pre- operative evaluation. HTN, hyperlipidemia. Pt active without cp or sob. Recently had TKA 2023 and recovering well. Informed Consent: The patient's anesthetic plan and its attendant risks and benefits were discussed with the patient/family/POA. Questions were solicited and answers provided to the satisfaction of the patient/family/POA.
--- NOTE | 2024-04-18 07:26 | WPDHPUPDATE1 ---
History and Physical Update Update Date/Time: 04/18/24 07:26 History and Physical has been reviewed, including an updated exam of the patient. There are NO changes in the patient's condition. Risks, benefits, and alternatives have been discussed and questions answered. Patient agrees to proceed with procedure.
--- NOTE | 2024-04-18 07:39 | WPDANESPNB ---
Anes - Peripheral Nerve Block Date/Time: 04/18/24 07:39 I have discussed with the patient/family/POA the placement of a peripheral nerve block for post-operative pain management, including associated risks, benefits, complications, and side effects. Alternative methods of post-operative analgesia were detailed. Questions were solicited and answers provided to the satisfaction of the patient/family/POA. Time-Out: A pre-procedural Time-Out was completed immediately before starting the procedure and confirmed: Patient Identification, Site, Procedure, Patient Position and the Availability of Requisite Equipment. Clinical Indications: Acute post-operative pain management requested by the operative surgeon. Nerve Block Insertion Note Anes-nerve block: interscalene right Patient position: supine Skin prep: chlorhexidine Needle: 22 gauge, stimulating, insulated echogenic needle. Needle length: 80 mm Technique: ultrasound Injectate: other (Bupiv 0.5% 15 mls. ) Observations: tolerated well Complications: none Procedure start time:: 730 Procedure end time::
[2024-04-18] MEDS: ceFAZolin 2 GM/D5W 50 ML 2 GM/50 ML BAG IVPB (07:45)
[2024-04-18] MEDS: SODIUM CHLORIDE 0.9% IV 37.7 ML, MORPHINE SULFATE INJ (*CRX) 2 MG, ROPivacaine HCL 1% 2... INFILTRATE (09:00)
[2024-04-18] MEDS: TRANEXAMIC ACID 1,000 MG/10 ML AMPUL 1000 MG IV PUSH (09:37)
[2024-04-18] MEDS: VANCOMYCIN HCL 1,000 MG VIAL 1000 MG TOPICAL (09:49)
--- NOTE | 2024-04-18 10:42 | P.OP_ITS ---
Procedure Note - Detailed Date of Procedure 04/18/24 Pre-op Diagnosis Severe arthritis right shoulder. Post-op Diagnosis Same Procedure Performed Reverse total shoulder arthroplasty, right Surgeon Jorge El MD Service Director Patsy Black PA-C Anesthesia General and Regional (Interscalene block.) Findings End stage arthritis with massive osteophytes, proliferative synovitis, and multiple large loose bodies. Satisfactory humeral bone quality. Excellent glenoid bone quality. 3D planning software used for component position. Description of Procedure The patient was given an interscalene block in the preoperative area. Preoper ative antibiotics were given. The patient was transferred to the operating room and a general anesthetic was administered. The beach chair position was used at 45 degrees. All bony prominences were padded. The head was carefully stabilized on the [facility] head screen worker. A sterile prep and drape was performed in the usual manner with ChloraPrep. A longitudinal incision was created at the anterior randall ulder just lateral to the deltopectoral interval. Hydrogen peroxide was placed on the incision and then rinsed after one minute. Careful dissection was performed to expose the interval and protect the cephalic vein. The vein was retracted medially. The upper border of the pectoralis was released. Anterior circumflex vessel branches were suture ligated. The biceps was tenodesed. A subscapularis tenotomy was performed. The inferior capsule was released, exposing the humeral head. Osteophytes were removed. Care was taken to stay on bone to protect the axillary nerve. The anatomic head cut was taken with the oscillating saw. The guide pin was placed, central drilling performed, and the broach trial inserted. The neck anteversion and inclination were carefully assessed. The cut protector was placed, and attention was turned to the glenoid. Retractors were placed. Releases were carried out for exposure. The subscapularis was mobilized, the inferior capsule and long head of triceps released, and the superior and middle glenohumeral ligaments released as well. Labral tissue was resected as needed. The sizing template was used to assess the baseplate position low on the glenoid. A guide pin was placed. Minimal reaming was used to accomplish a flat surface without violating the subchondral bone. Version was corrected according to preoperative templating. The boss was drilled, and the real component was impacted into position. Supplemental locking screws were placed centrally, superiorly, and inferiorly. The glenosphere was impacted into the taper. The proximal humerus was reamed for the inset component. The humeral components were trialed. The real humeral stem, tray, and insert were impacted into position. The shoulder was copiously irrigated periodically with pulsatile lavage. The shoulder was reduced and stability confirmed. 1 gram of Vancomycin powder was placed in the joint. The biceps tenodesis was incorporated with the pectoralis tendon repair. The deltopectoral space was reapproximated with number 1 Vicryl. The remaining tissue was closed with 0 Quill and 2-0 Quill running suture and steri-strips. A sterile silver occlusive dressing and shoulder immobilizer were placed. The patient was transferred to the recovery room. Physician assistant education director, Patsy Black PA-C, required for surgery; including patient positioning, draping, tissue retraction, maintaining instrument position, wound closure, and dressing placement. Implants Shoulder Innovations reverse TSA size 1 stem. +3 polyethylene insert. standard baseplate. 36 +6 mm glenosphere. Estimated Blood Loss 200 Drains No Pathology None sent Complications No immediate complications Condition Stable Disposition PACU [facility] Billing Surgery - Charge Forward: Surgery Billing
--- NOTE | 2024-04-18 12:24 | SUR.PHASEII ---
1220: pt/ot working with patient, patient ready for dc after pt/ot finishes.
== END 2024-04-18 13:18 | disposition home or self-care (01) ==
PROVIDERS: PCP Internal Medicine; Visit Provider Orthopaedic Surgery
PROC: (CPT 23472; principal; 2024-04-18 07:30)
DX: M19.011 Primary osteoarthritis, right shoulder (principal); M25.711 Osteophyte, right shoulder; M65.811 Other synovitis and tenosynovitis, right shoulder; M24.011 Loose body in right shoulder; I10 Essential (primary) hypertension; E83.52 Hypercalcemia; E78.00 Pure hypercholesterolemia, unspecified; Z79.82 Long term (current) use of aspirin; Z98.890 Other specified postprocedural states; Z85.46 Personal history of malignant neoplasm of prostate; Z80.1 Family history of malignant neoplasm of trachea, bronchus and lung; Z80.3 Family history of malignant neoplasm of breast; Z82.49 Family history of ischemic heart disease and other diseases of the circulatory system
CPT/HCPCS: 23472; 36415; 73030; 86850; 86900; 86901; 97110; 97161; 97165; 97535; A4565; A9270; C1776; J0171; J0690; J1100; J1885; J2003; J2250; J2270; J2405; J2704; J2795; J3010; J3370; J7030; J7120

== ENCOUNTER 2024-05-28 11:06 | Outpatient (CLI) | payer MEDICARE, SELFPAY ==
[2024-05-28 11:40] LABS: Basophils Absolute Auto 0.1 K/mm3 (0.0-0.1); Basophils Percent Auto 0.7 % (0.2-1.2); Eosinophils Absolute Auto 0.4 K/mm3 (0-0.3); Eosinophils Percent Auto 2.7 % (0-4.4); Hematocrit 38.3 % (42.0-52.0); Hemoglobin 12.6 g/dL (14.0-18.0); Immature Granulocyte Absolute 0.03 K/mm3 (0.00-0.031); Immature Granulocyte Percent A 0.2 % (0-0.5); Lymphocytes Absolute Auto 6.44 K/mm3 (0.9-3.2); Lymphocytes Percent Auto 49.5 % (18.3-44.2); Mean Corpuscular HGB Conc 32.9 g/dl (32-36); Mean Corpuscular Hemoglobin 30.1 pg (26-34); Mean Corpuscular Volume 91.4 fl (80-100); Mean Platelet Volume 8.7 fl (7.4-10.4); Monocytes Percent Auto 7.5 % (2.6-8.5); Neutrophils Absolute Auto 5.1 K/mm3 (1.3-6.7); Neutrophils Percent Auto 39.4 % (45.5-73.1); Platelet Count Result 281 k/mm3 (150-375); Red Blood Count 4.19 M/mm3 (4.6-6.20); Red Cell Distribution Width 13.3 % (11.5-14.5)
[2024-05-28 11:50] LABS: Platelet Estimate Adequate (Adequate); Schistocytes None Seen
[2024-05-28 11:51] LABS: Atypical Lymphocytes Present
[2024-05-28 14:09] LABS: Alanine Aminotransferase 24 U/L (6-50); Albumin Level 4.3 g/dL (3.5-5.1); Alkaline Phosphatase 101 U/L (38-126); Anion Gap 4 mmol/L (4-12); Aspartate Amino Transferase 28 U/L (17-59); Bilirubin,Total 1.4 mg/dL (0.2-1.3); Blood Urea Nitrogen 23 mg/dL (9-20); CRP < 0.5 mg/dL (<1.0); Calcium 9.9 mg/dL (8.4-10.2); Carbon Dioxide 29 mmol/L (22-30); Chloride 101 mmol/L (98-107); Estimated Glomerular Filt Rate > 60; Glucose 95 mg/dL (65-110); Lactate Dehydrogenase 158 U/L (120-246); Potassium 4.1 mmol/L (3.4-5.0); Sodium 134 mmol/L (137-145)
[2024-05-28 14:11] LABS: Erythrocyte Sedimentation Rate 16 mm/hr (0-20)
== END 2024-05-28 11:07 | disposition home or self-care (01) ==
LOC: ANHLAB 11:08
PROVIDERS: PCP Internal Medicine; Visit Provider Internal Medicine Hematology & Oncology
DX: D72.820 Lymphocytosis (symptomatic) (principal)
CPT/HCPCS: 36415; 80053; 83615; 85025; 85652; 86140; 88184

== ENCOUNTER 2024-07-18 10:03 | Outpatient (CLI) | payer MEDICARE, SELFPAY ==
[2024-07-19 10:21] LABS: Kit Draw Collected
== END 2024-07-18 10:04 | disposition home or self-care (01) ==
LOC: ANHLAB 10:05
PROVIDERS: PCP Otolaryngology Otolaryngology/Facial Plastic Surgery; Visit Provider Internal Medicine Hematology & Oncology
DX: C91.40 Hairy cell leukemia not having achieved remission (principal)
CPT/HCPCS: 36415

== ENCOUNTER 2024-07-25 07:48 | Outpatient (CLI) | payer MEDICARE, SELFPAY ==
--- NOTE | ~2024-07-25 | CT_ITS ---
Clinical Indication: Leukemia CT Scan of the Chest, Abdomen, and Pelvis with Contrast: Technique: Contiguous sections were acquired throughout the chest, abdomen, and pelvis after intraven ous administration of 100 cc of Omnipaque 350. Dose reduction technique was used on this scan by uti lizing automated exposure control and iterative reconstruction technique. The dose-length product (DL P) was 881.13 mGy-cm. Findings: There is no evidence of any significant mediastinal, hilar or axillary lymphadenopathy. Ascending aor ta measures 4.5 cm in diameter. No pulmonary embolus seen. No aortic dissection seen.. There is no evidence of pleural or pericardial effusion. The lungs are clear. No pulmonary nodules or infiltrates are noted. The liver, spleen, pancreas, and adrenal glands are within normal limits. Cholecystectomy clips are p resent. Small bilateral nonobstructing renal stones are present. No evidence of aortic aneurysm. No lymphadenopathy. No bowel obstruction or bowel wall thickening. There is evidence of prior herniorrhaphy. There is an elongated fluid collection along the mesh, measuring up to 10.9 x 2.7 x 4.5 cm, presumably large sero ma.. Urinary bladder is unremarkable. No pelvic mass seen. No ascites. Degenerative spondylosis of the lum bar spine is present. Impression: No distinct evidence of active malignancy or metastatic disease, or pathologic lymphadenopathy. Small bilateral nonobstructing renal stones. 10.9 x 2.7 x 4.5 cm presumed seroma, which is intimately associated with apparent herniorrhaphy mesh in the anterior abdomen. 4.5 cm ascending aortic aneurysm. Reviewed, dictated and finalized at [facility]. OF MARKETING Impression: No distinct evidence of active malignancy or metastatic disease, or pathologic lymphadenopathy. Small bilateral nonobstructing renal stones. 10.9 x 2.7 x 4.5 cm presumed seroma, which is intimately associated with appare nt herniorrhaphy mesh in the anterior abdomen. 4.5 cm ascending aortic aneurysm.
--- OUTSIDE RECORDS SUMMARY | 2024-07-25 07:51 | XMS_ITS | Patient Health Summary ---
Author Organization [facility] [employer] Address [address] [place] [address] Care Team Providers Care Hybrid Corn Breeder Name Role Phone LeMonchoPepitoeligio Sung DO Primary Care Provider [phone] Note from [facility] [place],non-owned Affiliates and Associated Physician Practices is amultiple site organization consisting of ambulatory clinics and hospital sitesin [place], [place], [place] and [place]. This disclosure is being madepursuant to the Care Everywhere program and may not contain all information available regarding this patient. Last updated 18.[facility] [employer] Allergies No known active allergies Medications * Be aware that medications may not be up to date on this document. Alwaysverify current medications with the patient. * lisinopril-hydrochlorothiazide (PRINZIDE; ZESTORETIC) 20-12.5 MG tablet Take 1 Tab by mouth daily with breakfast. Instructed to take AM of surgery * simvastatin (ZOCOR) 10 MG tablet Take 10 mg by mouth at bedtime. * CENTRUM CARDIO PO Take by mouth daily. * hydrocodone-acetaminophen (NORCO) 5-325 MG tablet(Started 07/22/2009) Take 1 Tab by mouth every 4 hours as needed for Pain. Active Problems Problem Noted Date Diagnosed Date Preoperative examination 07/15/2009 Social History Tobacco Use Types Packs/Day Years Used Date Smoking Tobacco: Never Alcohol Use Standard Drinks/Week Comments Yes 0 (1 standard drink = 0.6 oz pur e alcohol) social Sex and Gender Information Value Date Recorded Sex Assigned at Not on file Gender Identity Not on file Sexual Orientation Not on file Last Filed Vital Signs Vital Sign Reading Time Taken Comments Blood Pressure 119/83 07/22/2009 12:32 PM COSTUMED CHARACTER ENTERTAINER Pulse 86 07/22/2009 12:32 PM COSTUMED CHARACTER ENTERTAINER Temperature 36.4 C (97.6 F) 07/22/2009 12:32 PM COSTUMED CHARACTER ENTERTAINER Respiratory Rate 16 07/22/2009 12:32 PM COSTUMED CHARACTER ENTERTAINER Oxygen Saturation 96% 07/22/2009 11:31 AM COSTUMED CHARACTER ENTERTAINER Inhaled Oxygen Concentration - - Weight 97.8 kg (215 lb 9.8 oz) 07/22/2009 7:27 A M COSTUMED CHARACTER ENTERTAINER Height 185.4 cm (6' 1 ) 07/22/2009 7:27 AM COSTUMED CHARACTER ENTERTAINER Body Mass Index 28.45 07/22/2009 7:27 AM COSTUMED CHARACTER ENTERTAINER Procedures * GROSS + MICRO EXAM(Performed 07/22/2009) Performed for Unspecified Ventral Hernia without Mention of Obstruction or Gangrene * CARDIAC EKG ORDER(Performed 07/17/2009) * BASIC METABOLIC PANEL (CALCIUM TOTAL)(Performed 07/15/2009) Performed for Preoperative Examination * GROSS + MICRO EXAM(Performed 12/17/2008) Performed for Incisional Hernia Results * GROSS + MICRO EXAM (07/22/2009 12:00 AM COSTUMED CHARACTER ENTERTAINER) Only the most recent of2 resultswithin the time period is included. [facility] Surgeon DR. Renzo SANTANA [facility] Grossed By OLMAN SINGH [facility] Gross Report [facility] Comment: COPY TO INDICATION FOR PROCEDURE RECURRENT VENTRAL HERNIA OPERATION RECURRENT VENTRAL HERNIA REPAIR GROSS THE SPECIMEN IS RECEIVED IN ONE CONTAINER LABELED WITH THE PATIENT'S NAME AND VENTRAL HERNIA SAC. THE SPECIMEN IS RECEIVED IN FORMALIN AND CONSISTS OF AN IRREGULAR 3 X 2 X 1 CM CONGESTED, PURPLE-MARQUEZ PIECE OF FIBROMEMBRANOUS AND FATTY SOFT TISSUE. SECTIONED AND SUBMITTED REPRESENTATIVELY IN A SINGLE CASSETTE. LW/KM Microscopic Examination [facility] Comment: MICROSCOPIC THE SECTION LABELED VENTRAL HERNIA SAC SHOWS FIBROFATTY TISSUE FREE OF MALIGNANCY CONSISTENT WITH HERNIA SAC. JW/KM Diagnosis [facility] Comment: DIAGNOSIS 1. VENTRAL HERNIA SAC -- FIBROFATTY TISSUE CONSISTENT WITH HERNIA SAC JUVENTINO/KM Released by Rafat FOX [facility] CPT Code 84885 [facility] MISCELLANEOUS SAMPLE S / Unknown 07/22/2009 07/22/2009 10:44 AM COSTUMED CHARACTER ENTERTAINER Tom Santana MD LAB - PATHOLOGY/CYTO LOGY ORDERABLES Performing Organization Address [facility] Co de Phone Number [facility] [address] [place] [address] * CARDIAC EKG ORDER (07/17/2009 1:30 PM COSTUMED CHARACTER ENTERTAINER) Narrative 07/17/2009 1:30 PM COSTUMED CHARACTER ENTERTAINER Ordered by an unspecified provider. Transcriptions Document, Scanned - 07/15/2009 12:00 AM COSTUMED CHARACTER ENTERTAINER Scanned Document [facility] ORD ERABLES * (ABNORMAL) BASIC METABOLIC PANEL (CALCIUM TOTAL) (07/15/2009 9:45 AM COSTUMED CHARACTER ENTERTAINER) BUN 21(H) 9.0 - 20.0 mg/dl [facility] Sodium 139 137 - 145 mmol/L [facility] Potassium 4.4 3.6 - 5.0 mmol/L [facility] Chloride 100 98.0 - 107.0 mmol/L [facility] CO2 28 22.0 - 30.0 mEq/L [facility] Anion Gap 10 [facility] Glucose 88 75 - 110 mg/dl [facility] Creatinine 1.1 0.8 - 1.5 mg/dl [facility] Calcium 10.0 8.4 - 10.2 mg/dl [facility] eGFR by MDRD 73.1 ml/min/1.73 m2 [facility] BLOOD SPECIMEN / Unknown 07/15/2009 9:45 AM COSTUMED CHARACTER ENTERTAINER 07/15/2009 10:30 AM COSTUMED CHARACTER ENTERTAINER Tom Santana MD LAB - CHEMISTRY ORDMarshal HURST Performing Organization Address [facility] Co de Phone Number [facility] [address] [place] [address] Care Teams Hybrid Corn Breeder Relationship Specialty Start Date End Date Pepito Lujan DO [address] [address] PCP - General 07/14/09
--- OUTSIDE RECORDS SUMMARY | 2024-07-25 07:51 | XMS_ITS | Clinical Summary ---
Author Organization [facility] [employer] Address [address] [place] [address] Care Team Providers Care Open Shank Coverer Name Role Phone ScottPepito topete Pineda DAVISON Primary Care Provider [phone] Source Comments [facility],non-owned Affiliates and Associated Physician Practices is amultiple site organization consisting of ambulatory clinics and hospital sitesin [place], [place], [place] and [place]. This disclosure is being madepursuant to the Care Everywhere program and may not contain all information available regarding this patient. Last updated 18.[facility] Allergies No known active allergies Medications * Be aware that medications may not be up to date on this document. Alwaysverify current medications with the patient. Medication Sig Dispensed Refills Start Date End Date Status lisinopril-hydrochlo rothiazide (PRINZIDE; ZESTORETIC) 20-12.5 MG tablet Take 1 Tab by mouth daily with breakfast. Instructed to take AM of surgery Active simvastatin (ZOCOR) 10 MG tablet Take 10 mg by mouth at bedtime. Active CENTRUM CARDIO PO Take by mouth daily. Active hydrocodone-acetamin ophen (NORCO) 5-325 MG tablet Take 1 Tab by mouth every 4 hours as needed for Pain. 30 0 07/22/2009 Active Active Problems Problem Noted Date Diagnosed Date [...] Comments Blood Pressure 119/83 07/22/2009 12:32 PM BARREL BUILDER Pulse 86 07/22/2009 12:32 PM BARREL BUILDER Temperature 36.4 C (97.6 F) 07/22/2009 12:32 PM BARREL BUILDER Respiratory Rate 16 07/22/2009 12:32 PM BARREL BUILDER Oxygen Saturation 96% 07/22/2009 11:31 AM BARREL BUILDER Inhaled Oxygen Concentration - - Weight 97.8 kg (215 lb 9.8 oz) 07/22/2009 7:27 A M BARREL BUILDER Height 185.4 cm (6' 1 ) 07/22/2009 7:27 AM BARREL BUILDER Body Mass Index 28.45 07/22/2009 7:27 AM BARREL BUILDER Plan of Treatment Health Maintenance Due Date Last Done Comments COLOGUARD (AGES 45-75) - COL ON CA SCREENING 1950 COLON MONITORING 1950 COLONOSCOPY - COLON CA SCREENING 1950 CT COLONOGRAPHY - COLON CA SCREENING 1950 Colorectal Cancer Screening 1950 FIT - COLON CA SCREENING 1950 FLEX SIG - COLON CA SCREENING 1950 MEDICARE AWV 12 MONTHS 1950 HEPATITIS C SCREENING 11/11/1968 DTAP/TDAP/TD VACCINES (1 - Tdap) 1969 PNEUMOCOCCAL VACCINE 50+ (1 of 1 - PCV) 2000 ZOSTER VACCINE (1 of 2) 2000 COVID-19 VACCINE (2023-2 5 season) 2024 INFLUENZA VACCINE (#1) 2024 DEPRESSION SCREENING 06/19/2024 Respiratory Syncytial Virus (RSV) Vaccine Pt: or over 60 yrs (1 - 1-dose 75+ series) 2025 HEPATITIS B VACCINE Aged Out No longe r eligible based on patient's age to complete this topic HIB VACCINE Aged Out No longer eligi ble based on patient's age to complete this topic HPV VACCINE Aged Out No longer eligi ble based on patient's age to complete this topic MENINGOCOCCAL (Group B) VACCINE Aged Out No longer eligible based on patient's age to complete this topic MENINGOCOCCAL VACCINE Aged Out No thiago valerie eligible based on patient's age to complete this topic Care Teams Open Shank Coverer Relationship Specialty Start Date End Date Pepito Lujan DO [address] [place] [address] PCP - General 07/14/09
--- OUTSIDE RECORDS SUMMARY | 2024-07-25 07:51 | XMS_ITS | Referral Summary ---
Author Organization [facility] [employer] Address [address] [address] Care Team Providers Care Belt Tender Name Role Phone ScottPepito topete Pineda DAVISON Primary Care Provider [phone] Source Comments [facility] [employer],non-owned Affiliates and Associated Physician Practices is amultiple site organization consisting of ambulatory clinics and hospital sitesin [place], [place], [place] and [place]. This disclosure is being madepursuant to the Care Everywhere program and may not contain all information available regarding this patient. Last updated 18.[facility] [employer] Allergies No known active allergies Medications * [...] Comments Blood Pressure 119/83 07/22/2009 12:32 PM SKEET OPERATOR Pulse 86 07/22/2009 12:32 PM SKEET OPERATOR Temperature 36.4 C (97.6 F) 07/22/2009 12:32 PM SKEET OPERATOR Respiratory Rate 16 07/22/2009 12:32 PM SKEET OPERATOR Oxygen Saturation 96% 07/22/2009 11:31 AM SKEET OPERATOR Inhaled Oxygen Concentration - - Weight 97.8 kg (215 lb 9.8 oz) 07/22/2009 7:27 A M SKEET OPERATOR Height 185.4 cm (6' 1 ) 07/22/2009 7:27 AM SKEET OPERATOR Body Mass Index 28.45 07/22/2009 7:27 AM SKEET OPERATOR Plan of Treatment Not on file Care Teams Belt Tender Relationship Specialty Start Date End Date Pepito Lujan DO [address] [facility] [address] [place] [address] PCP - General 07/14/09
--- OUTSIDE RECORDS SUMMARY | 2024-07-25 07:51 | XMS_ITS | Clinical Summary ---
Author Organization [facility] Address [address] [place] [address] Care Team Providers Care Wool Washer Feeder Name Role Phone Unavailable Primary Care Provider Unavailabl e Allergies No known active allergies Medications amLODIPine (NORVASC) 5 mg tablet Take 1 Tablet by mouth daily. 03/19/2024 Active lisinopriL (PRINIVIL) 40 mg tablet Take 1 Tablet by mouth daily. 04/25/2024 Active simvastatin (ZOCOR) 10 mg tablet Take 1 Tablet by mouth daily. 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) 07/16/2024 External Device Data STL ABSTRACTION Provider, Abstract 07/10/2024 External Device Data STL ABSTRACTION Provider, Abstract 07/09/2024 External Device Data STL ABSTRACTION Provider, Abstract 07/03/2024 External Device Data STL ABSTRACTION Provider, Abstract 06/04/2024 External Device Data STL ABSTRACTION Provider, Abstract 06/03/2024 Orders Only [facility] - [place] [address] [place] [address] Cale Song MD 05/30/2024 Orders Only [facility] - [place] [address] [place] [address] Cale Song MD 05/28/2024 10:30 AM PRODUCTION MACHINE COMPUTER OPERATOR Office Visit [facility] Hematology - [place] [address] [place] [id number] Cale Song MD Lymphocytosis (Primary Dx) from Last 3 Months Family History Medical History Relation Name Comments Diabetes Child 1 No Known Problems Child 2 No Known Problems Child 3 Lung Cancer Father Heart Disease Mother No Known Problems Sister 1 Vaginal Cancer Sister 2 No Known Problems Sister 3 Relation Name Status Comments Child 1 Alive Child 2 Alive Child 3 Alive Father Mother Sister 1 Alive Sister 2 Alive Sister 3 Alive Social History Tobacco Use Types Packs/Day Years Used Date Smoking Tobacco: Never Tobacco Cessation:Counseling Given: Not Answered Alcohol Use Standard Drinks/Week Comments Yes 0 (1 standard drink = 0.6 oz pur e alcohol) occassionally Sex and Gender Information Value Date Recorded Sex Assigned at Not on file Legal Sex Male 12:49 PM CDT Gender Identity Not on file Sexual Orientation Not on file Last Filed Vital Signs Vital Sign Reading Time Taken Comments Blood Pressure 144/87 07/16/2024 9:55 AM PRODUCTION MACHINE COMPUTER OPERATOR Pulse 71 07/16/2024 9:53 AM PRODUCTION MACHINE COMPUTER OPERATOR Temperature 36.1 C (96.9 F) 07/16/2024 9:53 AM PRODUCTION MACHINE COMPUTER OPERATOR Respiratory Rate 16 07/16/2024 9:53 AM PRODUCTION MACHINE COMPUTER OPERATOR Oxygen Saturation 96% 07/16/2024 9:53 AM PRODUCTION MACHINE COMPUTER OPERATOR Inhaled Oxygen Concentration - - Weight 92.1 kg (203 lb) 07/16/2024 9:53 AM PRODUCTION MACHINE COMPUTER OPERATOR Height 185.4 cm (6' 1 ) 05/28/2024 10:33 AM PRODUCTION MACHINE COMPUTER OPERATOR Body Mass Index 26.78 05/28/2024 10:33 AM PRODUCTION MACHINE COMPUTER OPERATOR Plan of Treatment Upcoming Encounters Date Type Department Care Team (Late st Contact Info) Description 08/13/2024 2:00 PM PRODUCTION MACHINE COMPUTER OPERATOR Office Visit [facility] Hematology - [place] [address] [place] [address] Cale Song MD [address] [place] [address] Health Maintenance Due Date Last Done Comments DTAP/TDAP/TD VACCINES (1 - Tdap) 1969 PNEUMOCOCCAL VACCINE 65+ YEARS (1 of 2 - PCV) 11/16/18 70 ZOSTER VACCINE (1 of 2) 1969 COLORECTAL SCREENING 11/17/1995 Colorectal Cancer Screening 11/17/1995 FIT-DNA Q 3 years 11/17/1995 FIT/FOBT Q 1 year 11/17/1995 Flex Sig/CT Colonography Q 5 years 11/17/1995 RSV VACCINE (60+ or ) (1 - Risk 60-74 years 1-dose series) 2010 INFLUENZA VACCINE (#1) 2024 Procedures Procedure Name Priority Date/Time Associated Diagnosis Comments FLOW CYTOMETRY REPORT Routine 05/29/2024 9:39 AM PRODUCTION MACHINE COMPUTER OPERATOR CBC WITH DIFFERENTIAL Routine 05/28/2024 2:21 PM PRODUCTION MACHINE COMPUTER OPERATOR from Last 3 Months Results * FLOW CYTOMETRY REPORT (05/29/2024 9:39 AM PRODUCTION MACHINE COMPUTER OPERATOR) Cale Song MD PATHOLOGY/CYTOLOGY ORDERABLES F inal Result * CBC WITH DIFFERENTIAL (05/28/2024 2:21 PM PRODUCTION MACHINE COMPUTER OPERATOR) Blood Cale Song MD HEMATOLOGY ORDERABLES Final Res ult from Last 3 Months Insurance MEDICARE PART A AND B [employer] MEDICARE SUPP AESSI
[2024-07-25 08:17] LABS: Estimated Glomerular Filt Rate > 60
== END 2024-07-25 07:49 | disposition home or self-care (01) ==
PROVIDERS: PCP Internal Medicine; Visit Provider Internal Medicine Hematology & Oncology
DX: C91.40 Hairy cell leukemia not having achieved remission (principal); N20.0 Calculus of kidney; I71.21 Aneurysm of the ascending aorta, without rupture
CPT/HCPCS: 71260; 74177; Q9967

== ENCOUNTER 2024-09-26 09:30 | Outpatient (RCR) | payer SELFPAY | END 2024-11-07 23:59 | disposition home or self-care (01) | LOC: ANHAUDASC 09:30 | PROVIDERS: PCP Internal Medicine; Visit Provider Internal Medicine | DX: Z46.1 Encounter for fitting and adjustment of hearing aid (principal) | CPT/HCPCS: 99199; V5261 ==

== ENCOUNTER 2024-10-30 09:24 | Outpatient (CLI) | payer MEDICARE, SELFPAY ==
--- NOTE | ~2024-10-30 | XR_ITS ---
Right Knee Technique: AP, lateral, and sunrise views were obtained. Clinical History: Arthroplasty Findings: No fracture or dislocation is seen. Right knee arthroplasty in place. Small joint effusion is seen. Impression: Right knee arthroplasty in place. No acute abnormality seen. Small joint effusion. Reviewed, dictated and finalized at [facility]. Impression: Right knee arthroplasty in place. No acute abnormality seen. Small joint effusion.
--- OUTSIDE RECORDS SUMMARY | 2024-10-30 09:34 | XMS_ITS | Clinical Summary ---
Author Organization [facility] [employer] Address [address] [place] [address] Care Team Providers Care Mingler Operator Name Role Phone Pepito Lujan Primary Care Provider [phone] Source Comments [facility] [employer],non-owned Affiliates and Associated Physician Practices is amultiple site organization consisting of ambulatory clinics and hospital sitesin [place], [place], [place] and [place]. This disclosure is being madepursuant to the Care Everywhere program and may not contain all information available regarding this patient. Last updated 18.[facility] [employer] Allergies No known active allergies Medications * Be aware that medications may not be up to date on this document. Alwaysverify current medications with the patient. lisinopril-hydr ochlorothiazide (PRINZIDE; ZESTORETIC) 20-12.5 MG tablet Take 1 Tab by mouth daily with breakfast. Instructed to take AM of surgery Active simvastatin (ZOCOR) 10 MG tablet Take 10 mg by mouth at bedtime. Active CENTRUM CARDIO PO Take by mouth daily. Active hydrocodone-jesus taminophen (NORCO) 5-325 MG tablet Take 1 Tab by mouth every 4 hours as needed for Pain. 30 0 0 Active Active Problems Problem Noted Date Diagnosed Date Preoperative examination 07/15/2009 Social History Tobacco Use Types Packs/Day Years Used Date Smoking Tobacco: Never Alcohol Use Standard Drinks/Week Comments Yes 0 (1 standard drink = 0.6 oz pur e alcohol) social Sex and Gender Information Value Date Recorded Sex Assigned at Not on file Legal Sex Male 6:57 AM BRAILLE TRANSCRIBER Gender Identity Not on file Sexual Orientation Not on file Last Filed Vital Signs Vital Sign Reading Time Taken Comments Blood Pressure 119/83 07/22/2009 12:32 PM BRAILLE TRANSCRIBER Pulse 86 07/22/2009 12:32 PM BRAILLE TRANSCRIBER Temperature 36.4 C (97.6 F) 07/22/2009 12:32 PM BRAILLE TRANSCRIBER Respiratory Rate 16 07/22/2009 12:32 PM BRAILLE TRANSCRIBER Oxygen Saturation 96% 07/22/2009 11:31 AM BRAILLE TRANSCRIBER Inhaled Oxygen Concentration - - Weight 97.8 kg (215 lb 9.8 oz) 07/22/2009 7:27 A M BRAILLE TRANSCRIBER Height 185.4 cm (6' 1 ) 07/22/2009 7:27 AM BRAILLE TRANSCRIBER Body Mass Index 28.45 07/22/2009 7:27 AM BRAILLE TRANSCRIBER Plan of Treatment Health Maintenance Due Date Last Done Comments COLOGUARD (AGES 45-75) - COL ON CA SCREENING 1950 COLON MONITORING 1950 COLONOSCOPY - COLON CA SCREENING 1950 CT COLONOGRAPHY - COLON CA SCREENING 1950 Colorectal Cancer Screening 1950 FIT - COLON CA SCREENING 1950 FLEX SIG - COLON CA SCREENING 1950 HEPATITIS C SCREENING 11/11/1968 DTAP/TDAP/TD VACCINES (1 - Tdap) 1969 PNEUMOCOCCAL VACCINE 50+ (1 of 1 - PCV) 2000 ZOSTER VACCINE (1 of 2) 2000 COVID-19 VACCINE ( - 2023-2 5 season) 2024 DEPRESSION SCREENING 06/19/2024 INFLUENZA VACCINE (Season Ended) 2025 Respiratory Syncytial Virus (RSV) Vaccine Pt: or [...] to complete this topic MENINGOCOCCAL (Group B) VACC INE SHARED DECISION-MAKING Aged Out No longer eligibl e based on patient's age to complete this topic MENINGOCOCCAL GROUPS A/C/Y/W VACCINE Aged Out No longer eligible b ased on patient's age to complete this topic Insurance MEDICARE AET Care Teams Mingler Operator Relationship Specialty Start Date End Date Pepito Lujan DO [address] [facility] [address] [place] [address] PCP - General 07/14/09
--- OUTSIDE RECORDS SUMMARY | 2024-10-30 09:34 | XMS_ITS | Clinical Summary ---
Author Organization [facility] Address [address] [place] [address] Care Team Providers Care Pari Mutuel Ticket Cashier Name Role Phone Lemuel Roman DO Primary Care Provider [phone] Allergies No known active allergies Medications amLODIPine [...] Encounters Date Type Department Care Team Description 10/01/2024 External Device Data STL ABSTRACTION Provider, Abstract 09/24/2024 External Device Data [facility] ABSTRACTION Provider, Abstract 09/04/2024 External Device Data [facility] ABSTRACTION Provider, Abstract 08/26/2024 External Device Data STL ABSTRACTION Provider, Abstract 08/13/2024 2:00 PM MANAGING PRINCIPAL Office Visit [facility] Oncology and Hematology - [place] [address] [place] [address] Cale Song MD 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) 08/13/2024 External Device Data [facility] ABSTRACTION Provider, Abstract from Last 3 Months Family History Medical [...] Sign Reading Time Taken Comments Blood Pressure 140/86 08/13/2024 1:52 PM MANAGING PRINCIPAL Pulse 87 08/13/2024 1:50 PM MANAGING PRINCIPAL Temperature 36.5 C (97.7 F) 08/13/2024 1:50 PM MANAGING PRINCIPAL Respiratory Rate 16 08/13/2024 1:50 PM MANAGING PRINCIPAL Oxygen Saturation 98% 08/13/2024 1:50 PM MANAGING PRINCIPAL Inhaled Oxygen Concentration - - Weight 91.5 kg (201 lb 12.8 oz) 08/13/2024 1:50 PM MANAGING PRINCIPAL Height 185.4 cm (6' 1 ) 05/28/2024 10:3 3 AM MANAGING PRINCIPAL Body Mass Index 26.62 05/28/2024 10:33 AM MANAGING PRINCIPAL Plan of Treatment Upcoming Encounters Date Type Department Care Team (Late st Contact Info) Description 12/12/2024 10:15 AM CDT Office Visit [facility] Oncology and Hematology [facility] [address] [place] [address] [facility] [address] [place] [address] Cale Song MD [address] [facility] [address] [place] [address] Health Maintenance Due Date Last Done Comments DTAP/TDAP/TD VACCINES (1 - Tdap) 1969 PNEUMOCOCCAL VACCINE 50+ YEARS (1 of 2 - PCV) 11/16/18 70 ZOSTER VACCINE (1 of 2) 1969 COLORECTAL SCREENING 11/17/1995 Colorectal Cancer Screening 11/17/1995 FIT-DNA Q 3 years 11/17/1995 FIT/FOBT Q 1 year 11/17/1995 Flex Sig/CT Colonography Q 5 years 11/17/1995 RSV VACCINE (60+ or ) (1 - Risk 60-74 years 1-dose series) 2010 INFLUENZA VACCINE (#1) 2024 Procedures Procedure Name Priority Date/Time Associated Diagnosis Comments [facility] (DNA AND RNA) Routine 08/05/2024 12:59 PM MANAGING PRINCIPAL Hairy cell leukemia not having achieved remission (CMS/HCC) from Last 3 Months Results * [facility]EMAT[facility] MALIGNANCY (DNA AND RNA) (08/05/2024 12:59 PM MANAGING PRINCIPAL) [facility] [email or web address] 08/05/2024 12:59 PM MANAGING PRINCIPAL [facility] Comment:[facility] link Reason for Study To identify somatic and germline mutations relevant to patient's cancer. 08/05/2024 12:59 PM MANAGING PRINCIPAL [facility] Genetic Diseases Assessed Cancer 08/05/2024 12:59 PM MANAGING PRINCIPAL [facility] Description of Ranges of DNA Sequences Examined 648 gene panel 08/05/2024 12:59 PM MANAGING PRINCIPAL [facility] Overall Interpretation positive 08/05/2024 12:59 PM MANAGING PRINCIPAL [facility] xR Result 1 NEGATIVE Negative - This report is being issued to report the results of gene rearrangement and altered splicing analysis from RNA sequencing. No gene rearrangements nor reportable altered splicing events were identified from RNA sequencing. 08/05/2024 12:59 PM MANAGING PRINCIPAL [facility] Treatment Implications Note No reportable treatment options found. 08/05/2024 12:59 PM MANAGING PRINCIPAL [facility] Low Coverage Regions [id number] 08/05/2024 12:59 PM MANAGING PRINCIPAL [facility] Blood specimen (specimen) 07/20/2024 10:54 AM MANAGING PRINCIPAL Narrative This result has genomic variants that were not included in this document. us Cale Song MD MOLECULAR ORDERABLES Final Resu lt [facility] [address] [facility] [address], [address] [place] [address], [facility] [address], [address] [place] [address] from Last 3 Months Insurance MEDICARE PART A AND B AETNA MEDICARE SUPP AESSI Care Teams Pari Mutuel Ticket Cashier Relationship Specialty Start Date End Date Lemuel Roman DO [address] [facility] [address] [place] [address] PCP - General Internal Medicine 08/13/24
== END 2024-10-30 09:25 | disposition home or self-care (01) ==
PROVIDERS: PCP Internal Medicine; Visit Provider Orthopaedic Surgery
DX: Z96.651 Presence of right artificial knee joint (principal); M25.461 Effusion, right knee
CPT/HCPCS: 73562

== ENCOUNTER 2025-01-13 10:08 | Outpatient (CLI) | payer MEDICARE, SELFPAY ==
[2025-01-13 10:21] LABS: Hematocrit 42.1 % (42.0-52.0); Hemoglobin 14.1 g/dL (14.0-18.0); Immature Granulocyte Percent A 0.2 % (0-0.5); Lymphocytes Absolute Auto 6.92 K/mm3 (0.9-3.2); Mean Corpuscular HGB Conc 33.5 g/dl (32-36); Mean Corpuscular Hemoglobin 30.7 pg (26-34); Mean Corpuscular Volume 91.7 fl (80-100); Nucleated Red Blood Cells Absolute Auto 0.000 K/mm3 (0.0-0.012); Nucleated Red Blood Cells Perc 0.0 % (0.0-0.2); Platelet Count Result 261 k/mm3 (150-375); Red Blood Count 4.59 M/mm3 (4.6-6.20); White Blood Count 12.3 K/mm3 (4.5-10.0)
[2025-01-13 10:25] LABS: Blood Urea Nitrogen 18 mg/dL (8-26); Carbon Dioxide 25 mmol/L (22-30); Chloride 101 mmol/L (98-109); Estimated Glomerular Filt Rate > 60; Glucose 97 mg/dL (70-105); Ionized Calcium (POC) 1.24 mmol/L (1.11-1.31); Potassium 4.1 mmol/L (3.5-4.9); Sodium 138 mmol/L (138-146)
--- OUTSIDE RECORDS SUMMARY | 2025-01-13 10:37 | XMS_ITS | Clinical Summary ---
Author Organization [facility] [employer] Address [address] [facility] [place] [address] Care Team Providers Care Pneumatic Tool Operator Name Role Phone Pepito Lujan Primary Care Provider [phone] Source Comments [facility] [employer],non-owned Affiliates and Associated Physician Practices is amultiple site organization consisting of ambulatory clinics and hospital sitesin [place], [place], [place]. This disclosure is being madepursuant to the Care Everywhere program and may not contain all information available regarding this patient. Last updated 18.[facility] [employer] Allergies No known active allergies Medications * [...] on file Legal Sex Male 6:57 AM HANDS HANGER Gender Identity Not on file Sexual Orientation Not on file Last Filed Vital Signs Vital Sign Reading Time Taken Comments Blood Pressure 119/83 07/22/2009 12:32 PM HANDS HANGER Pulse 86 07/22/2009 12:32 PM HANDS HANGER Temperature 36.4 C (97.6 F) 07/22/2009 12:32 PM HANDS HANGER Respiratory Rate 16 07/22/2009 12:32 PM HANDS HANGER Oxygen Saturation 96% 07/22/2009 11:31 AM HANDS HANGER Inhaled Oxygen Concentration - - Weight 97.8 kg (215 lb 9.8 oz) 07/22/2009 7:27 A M HANDS HANGER Height 185.4 cm (6' 1) 07/22/2009 7:27 AM HANDS HANGER Body Mass Index 28.45 07/22/2009 7:27 AM HANDS HANGER Plan of Treatment Health Maintenance Due Date [...] season) 2024 DEPRESSION SCREENING 06/19/2024 INFLUENZA VACCINE (#1) 2025 Respiratory Syncytial Virus (RSV) Vaccine Pt: [...] this topic Insurance MEDICARE AET Care Teams Pneumatic Tool Operator Relationship Specialty Start Date End Date Pepito Lujan DO [address] [facility] [address] [place] [address] PCP - General 07/14/09
--- OUTSIDE RECORDS SUMMARY | 2025-01-13 10:38 | XMS_ITS | Continuity of Care Document ---
Author Organization [facility] Address [address] [place] [phone] Phone Care Team Providers Care Casual Shoe Inspector Name Role Phone Lacey Lee MD Unavailable Unavailable Allergies, Adverse Reactions, Alerts Substance Reaction Status Criticality acetaminophen HivesHives Active No Information Medications Medication Instructions Dosage Effective Dates (start - stop) Status Comments amlodipine 10 mg tablet take 1 tablet by oral route every day 10 MG - Active atorvastatin 40 mg tablet take 1 tablet by oral route every day 40 MG - Active lisinopril 40 mg tablet take 1 tablet by oral route every day 40 MG - Active diclofenac 1 % topical gel apply 4 gram by topical route 4 times every day to the affected area(s) 4 gram - Active cholecalciferol (vitamin D3) 50 mcg (2,000 unit) capsule take 2 capsule by oral route every day 2 capsule - Active cetirizine 10 mg tablet take 1 tablet by oral route every day 10 MG - Active omeprazole 10 mg capsule,delayed release take 1 capsule by oral route every day before a meal 10 MG - Active Advance Directives Directive Yes / No Effective Date File Name No Information Encounters Encounter Description Practice Location Reason(s) For Visit Diagnoses Date Provider Providers Copied on Encounter [facility], [address] [place] [address], [id number], tel:[phone] [facility] No Information 5 Rosa Rahman. [address] [place] [address] [place], [id number] , . tel:[phone] [facility], [address] [place] [address], [id number], tel:[phone] [facility] No Information Rosa Rahman. [address] [place] [address], [place], [place], [id number] , . tel:[phone] Family History Family Member Type Diagnosis Age At Onset No Information Payers Payer name Insurance type Covered constitution party ID Authoriza tion(s) No Information Social History Type Description Quantity Date Captured Comments Sex Male Smoking Status No Information Chief Complaint And Reason For Visit No Information Reason For Referral Reason For Referral No Information Plan Of Treatment Date Type Action Status Appointment Raúl Wu BOOKED History Of Present Illness Encounter Date Complaint History Of Prese nt Illness No Information Functional Status Date Functional Assessmen t No Information Instructions Date Instruction Additional Infor mation No Information Assessments Type Assessment Date No Information Patient Care Teams Name Effective Dates (start - stop) Status Members No Information
--- OUTSIDE RECORDS SUMMARY | 2025-01-13 10:38 | XMS_ITS | Clinical Summary ---
Author Organization [facility] [place] [facility] Address [address] [place] [address] Care Team Providers Care Food Writer Name Role Phone Lemuel Roman DO Primary Care Provider [phone] Allergies No known active allergies Medications amLODIPine [...] Encounters Date Type Department Care Team Description 12/03/2024 External Device Data [facility] ABSTRACTION Provider, Abstract 11/12/2024 External Device Data [facility] ABSTRACTION Provider, Abstract 11/07/2024 External Device Data [facility] ABSTRACTION Provider, Abstract 11/06/2024 External Device Data [facility] ABSTRACTION Provider, Abstract 11/05/2024 External Device Data [facility] ABSTRACTION Provider, Abstract [...] Comments Blood Pressure 140/86 08/13/2024 1:52 PM WORD PROCESSING SPECIALIST Pulse 87 08/13/2024 1:50 PM WORD PROCESSING SPECIALIST Temperature 36.5 C (97.7 F) 08/13/2024 1:50 PM WORD PROCESSING SPECIALIST Respiratory Rate 16 08/13/2024 1:50 PM WORD PROCESSING SPECIALIST Oxygen Saturation 98% 08/13/2024 1:50 PM WORD PROCESSING SPECIALIST Inhaled Oxygen Concentration - - Weight 91.5 kg (201 lb 12.8 oz) 08/13/2024 1:50 PM WORD PROCESSING SPECIALIST Height 185.4 cm (6' 1) 05/28/2024 10:3 3 AM WORD PROCESSING SPECIALIST Body Mass Index 26.62 05/28/2024 10:33 AM WORD PROCESSING SPECIALIST Plan of Treatment Upcoming Encounters Date Type Department Care Team (Late st Contact Info) Description 01/13/2025 3:45 PM CDT Office Visit [facility] Oncology and Hematology - [place] [address] [facility] [address] [place] [address] Cale Song MD [address] [facility] [address] [place] [address] Health Maintenance Due Date Last Done Comments DTAP/TDAP/TD VACCINES (1 - Tdap) 1969 PNEUMOCOCCAL VACCINE 50+ YEARS (1 of 2 - PCV) 11/16/18 70 Traditional Medicare (ACO) Annual Wellness Visit 11/16 ZOSTER VACCINE (1 of 2) 1969 COLORECTAL SCREENING 11/17/1995 Colorectal Cancer Screening 11/17/1995 FIT-DNA Q 3 years 11/17/1995 FIT/FOBT Q 1 year 11/17/1995 Flex Sig/CT Colonography Q 5 years 11/17/1995 INFLUENZA VACCINE (#1) 2025 RSV VACCINE (60+ or ) (1 - 1-dose 75+ series) 2025 Insurance MEDICARE PART A AND B AETNA MEDICARE SUPP AESSI Care Teams Food Writer Relationship Specialty Start Date End Date Lemuel Roman DO [address] [facility] [address] [place] [phone] PCP - General Internal Medicine 08/13/24
[2025-01-13 11:26] LABS: Alanine Aminotransferase 21 U/L (6-50); Albumin Level 4.4 g/dL (3.5-5.1); Alkaline Phosphatase 83 U/L (38-126); Anion Gap 10 mmol/L (4-12); Aspartate Amino Transferase 34 U/L (17-59); Bilirubin,Total 1.6 mg/dL (0.2-1.3); Blood Urea Nitrogen 19 mg/dL (9-20); Calcium 9.8 mg/dL (8.4-10.2); Carbon Dioxide 25 mmol/L (22-30); Chloride 101 mmol/L (98-107); Estimated Glomerular Filt Rate > 60; Glucose 95 mg/dL (65-110); Potassium 4.1 mmol/L (3.4-5.0); Sodium 136 mmol/L (137-145); Total Protein 7.4 g/dL (6.3-8.2)
== END 2025-01-13 10:09 | disposition home or self-care (01) ==
LOC: ANHLAB 10:10
PROVIDERS: PCP Internal Medicine; Visit Provider Internal Medicine Hematology & Oncology
DX: C91.40 Hairy cell leukemia not having achieved remission (principal)
CPT/HCPCS: 36415; 80047; 80053; 83615; 85025

== ENCOUNTER 2025-04-15 11:38 | Outpatient (CLI) | payer MEDICARE, SELFPAY ==
--- NOTE | ~2025-04-15 | XR_ITS ---
EXAMINATION: XR shoulder RT min 2V, 04/15/2025 11:55 CDT HISTORY: ARTIFICIAL RIGHT SHOULDER, F/U COMPARISON: No comparisons available. Findings: No acute fracture or malalignment. Arthroplasty intact Soft tissues unremarkable. Impression: No acute fracture or malalignment. Reviewed, dictated and finalized at location P. Impression: No acute fracture or malalignment.
--- OUTSIDE RECORDS SUMMARY | 2025-04-15 13:46 | XMS_ITS | Clinical Summary ---
Author Organization [facility] [employer] Address [address] [place] [place] [address] Care Team Providers Care Lockstitch Sleeve Setter Name Role Phone Pepito Lujan Primary Care Provider [phone] Source Comments [facility] [employer],non-owned Affiliates and Associated Physician Practices is amultiple site organization consisting of ambulatory clinics and hospital sitesin [place], [place], [place] and [place]. This disclosure is being madepursuant to the Care Everywhere program and may not contain all information available regarding this patient. Last updated 18.[facility] Allergies No known active allergies Medications * [...] on file Legal Sex Male 6:57 AM COMPLIANCE ENGINEER PRODUCTS Gender Identity Not on file Sexual Orientation Not on file Last Filed Vital Signs Vital Sign Reading Time Taken Comments Blood Pressure 119/83 07/22/2009 12:32 PM COMPLIANCE ENGINEER PRODUCTS Pulse 86 07/22/2009 12:32 PM COMPLIANCE ENGINEER PRODUCTS Temperature 36.4 C (97.6 F) 07/22/2009 12:32 PM COMPLIANCE ENGINEER PRODUCTS Respiratory Rate 16 07/22/2009 12:32 PM COMPLIANCE ENGINEER PRODUCTS Oxygen Saturation 96% 07/22/2009 11:31 AM COMPLIANCE ENGINEER PRODUCTS Inhaled Oxygen Concentration - - Weight 97.8 kg (215 lb 9.8 oz) 07/22/2009 7:27 A M COMPLIANCE ENGINEER PRODUCTS Height 185.4 cm (6' 1) 07/22/2009 7:27 AM COMPLIANCE ENGINEER PRODUCTS Body Mass Index 28.45 07/22/2009 7:27 AM COMPLIANCE ENGINEER PRODUCTS Plan of Treatment Health Maintenance Due Date [...] 2000 ZOSTER VACCINE (1 of 2) 2000 DEPRESSION SCREENING 06/19/2024 COVID-19 VACCINE (1 - 2023-2 5 season) 2025 INFLUENZA VACCINE (#1) 2025 Respiratory Syncytial Virus [...] this topic Insurance MEDICARE AET Care Teams Lockstitch Sleeve Setter Relationship Specialty Start Date End Date Pepito Lujan DO [address] [facility] [address] [place] [address] PCP - General 07/14/09
--- OUTSIDE RECORDS SUMMARY | 2025-04-15 13:47 | XMS_ITS | Clinical Summary ---
Author Organization [facility] [place] [facility] Address [address] [place] [address] Care Team Providers Care Manager Of Care Name Role Phone Lemuel Roman DO Primary Care Provider [phone] Allergies No known active allergies Medications amLODIPine [...] Encounters Date Type Department Care Team Description 03/25/2025 External Device Data [facility] ABSTRACTION Provider, Abstract 03/04/2025 External Device Data [facility] ABSTRACTION Provider, Abstract 02/25/2025 External Device Data [facility] ABSTRACTION Provider, Abstract 02/04/2025 External Device Data [facility] ABSTRACTION Provider, Abstract 01/21/2025 External Device Data STL ABSTRACTION Provider, Abstract 01/14/2025 Orders Only [facility] Oncology and Hematology [facility] [address] [place] [address] Cale Song MD 01/13/2025 3:45 PM CDT Office Visit [facility] Oncology and Hematology [facility] [address] [place] [phone] Cale Song MD 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) from Last 3 Months Family [...] Sign Reading Time Taken Comments Blood Pressure 145/89 01/13/2025 3:40 PM CDT Pulse 78 01/13/2025 3:37 PM CDT Temperature 36.7 C (98.1 F) 01/13/2025 3:37 PM CDT Respiratory Rate 15 01/13/2025 3:37 PM CDT Oxygen Saturation 97% 01/13/2025 3:37 PM CDT Inhaled Oxygen Concentration - - Weight 91.6 kg (202 lb) 01/13/2025 3:37 PM CDT Height 185.4 cm (6' 1) 05/28/2024 10:33 AM NETWORK OPERATIONS SPECIALIST Body Mass Index 26.65 05/28/2024 10:33 AM NETWORK OPERATIONS SPECIALIST Plan of Treatment Upcoming Encounters Date Type Department Care Team (Late st Contact Info) Description 09/08/2025 10:15 AM CDT Office Visit [facility] Oncology and Hematology - [place] [address] [facility] [address] [place] [address] Cale Song MD [address] [facility] [address] [place] [address] Health Maintenance Due Date Last [...] ) (1 - 1-dose 75+ series) 2025 Procedures Procedure Name Priority Date/Time Associated Diagnosis Comments COMPREHENSIVE METABOLIC PANEL Routine 01/13/2025 4:28 PM CDT CBC WITH DIFFERENTIAL Routine 01/13/2025 4:16 PM CDT from Last 3 Months Results * COMPREHENSIVE METABOLIC PANEL (01/13/2025 4:28 PM CDT) Blood us Cale Song MD CHEMISTRY ORDERABLES Final Resu lt * CBC WITH DIFFERENTIAL (01/13/2025 4:16 PM CDT) Blood us Cale Song MD HEMATOLOGY ORDERABLES Final Res ult from Last 3 Months Insurance MEDICARE PART A AND B AETNA MEDICARE SUPP AESSI Care Teams Manager Of Care Relationship Specialty Start Date End Date Lemuel Roman DO [address] [facility] [address] [facility] [address] [place] [address] PCP - General Internal Medicine 08/13/24
== END 2025-04-15 11:39 | disposition home or self-care (01) ==
PROVIDERS: PCP Internal Medicine; Visit Provider Orthopaedic Surgery
DX: Z96.611 Presence of right artificial shoulder joint (principal)
CPT/HCPCS: 73030